=== PATIENT | male | born 1955 | race Caucasian/White ===

== ENCOUNTER → 2018-04-22 15:47 | Outpatient (CLI) | payer OTHER, SELFPAY ==
--- NOTE | 2018-04-22 15:50 | DI.RAD.S_ITS ---
PROCEDURE: XR LUMBAR SPINE 2-3V INDICATIONS: back pain TECHNIQUE: 2 views of the lumbar spine were acquired. COMPARISON: None. FINDINGS: Bones: No fracture or focal osseous destruction. Diffuse endplate spurring and sclerosis. Diffuse facet arthropathy. Mild levocurvature. Mild narrowing of the L1-L2 disc space. Moderate L5-S1 disc space narrowing. Soft tissues: Overlying bowel gas pattern is normal. No suspicious soft tissue calcifications. IMPRESSION: Mild degenerative disc disease, L5-S1 and L1-L2 as above. Diffuse facet arthropathy. Dictated by: Chris Ratliff M.D. on 04/23/2018 at 10:20 Approved by: Chris Ratliff M.D. on 04/23/2018 at 10:22
--- NOTE | 2018-04-22 15:50 | DI.RAD.S_ITS ---
PROCEDURE: XR THORACIC SPINE 3V INDICATIONS: back pain TECHNIQUE: 3 views of the thoracic spine were acquired. COMPARISON: None. FINDINGS: Bones: No fractures or dislocations. No suspicious bony lesions. Diffuse endplate spurring and sclerosis. Mild diffuse thoracic disc space narrowing. Soft tissues: No paravertebral stripe thickening. IMPRESSION: Mild diffuse thoracic disc degeneration as above Dictated by: Chris Ratliff M.D. on 04/23/2018 at 10:23 Approved by: Chris Ratliff M.D. on 04/23/2018 at 10:24
== END ==
PROVIDERS: Visit Provider Family Medicine
DX: M51.36 Other intervertebral disc degeneration, lumbar region (principal); M51.37 Other intervertebral disc degeneration, lumbosacral region; M51.34 Other intervertebral disc degeneration, thoracic region; M47.896 Other spondylosis, lumbar region; M48.04 Spinal stenosis, thoracic region; M48.07 Spinal stenosis, lumbosacral region; M48.061 Spinal stenosis, lumbar region without neurogenic claudication; M54.9 Dorsalgia, unspecified
CPT/HCPCS: 72072; 72100

== ENCOUNTER → 2018-07-27 13:51 | Outpatient (CLI) | payer OTHER, SELFPAY ==
--- NOTE | 2018-07-27 13:52 | DI.MRI.S_ITS ---
PROCEDURE: MR LUMBAR SPINE WO CON INDICATIONS: L5 radiculopathy TECHNIQUE: Noncontrast sagittal T1 spin echo and T2 fast echo, sagittal STIR, axial T1 and T2 fast spin echo through the lumbar spine. In cases with scoliosis, additional coronal T2 fast spin echo may be performed. COMPARISON: [facility], , L-SPINE WITHOUT CONTRAST, 08/24/2007, 18:46. FINDINGS: Image quality: Excellent. Alignment and Curvature: There is normal bony alignment. Bone Marrow: Marrow is of normal overall signal. No acute vertebral body compression fractures. Spinal Cord: Conus medullaris terminates at the L1-L2 level. Visualized cord demonstrates normal signal and size. Paraspinous Soft Tissues: Bilateral T2 hyperintense cysts L1-L2: No central canal or lateral recess narrowing. No foraminal stenosis. L2-L3: No definite central canal narrowing. Minimal partial effacement of the left and right lateral recesses, probably unchanged. Mild bilateral foraminal narrowing. No interval change L3-L4: Mild central canal narrowing. Moderate effacement of both lateral recesses although symmetric appearance. This may be slightly progressed Severe right and moderate left foraminal narrowing. L4-L5: No high-grade central canal narrowing. Partial effacement of both lateral recesses although symmetric appearance. This is unchanged. Severe left and right foraminal stenoses, no interval change. L5-S1: Posterior annular fissure. Mild central canal narrowing. Lateral recess appear patent. Moderate right and severe left foraminal narrowing which is slightly progressed. IMPRESSION: Slight interval progression of bilateral L3-L4 subarticular narrowing, and severe left L5-S1 foraminal stenosis otherwise unchanged examination as detailed above by spinal level. Dictated by: Chris Ratliff M.D. on 07/27/2018 at 14:51 Approved by: Chris Ratliff M.D. on 07/27/2018 at 15:03
== END ==
PROVIDERS: PCP Family Medicine; Visit Provider Physical Medicine & Rehabilitation
DX: M54.17 Radiculopathy, lumbosacral region (principal); M48.061 Spinal stenosis, lumbar region without neurogenic claudication
CPT/HCPCS: 72148

== ENCOUNTER → 2018-08-05 09:44 | Outpatient (CLI) | payer OTHER, SELFPAY ==
[2018-08-05 10:28] LABS: BUN Creatinine Ratio 22.2 (6-22); Blood Urea Nitrogen 20 mg/dL (9-20); Carbon Dioxide 31 mmol/L (22-32); Chloride 99 mmol/L (98-107); Cholesterol 212 mg/dL (140-199); Estimated Glomerular Filt Rate > 60.0 mL/min (>60); Glucose 89 mg/dL (80-110); HDL Cholesterol 64 mg/dL (40-60); HEMOLYSIS < 15 (0-50); LDL Cholesterol Calculated 127 mg/dL (<100); Potassium 4.4 mmol/L (3.4-5.1); Sodium 139 mmol/L (137-145); Triglycerides 106 mg/dL (35-150)
[2018-08-05 11:16] LABS: Creatinine Urine Random 24.2 mg/dL
[2018-08-05 11:24] LABS: Microalbumi Creatinin Ratio Ur 24.7 ug/mg CR (<30); Microalbumin Urine Random < 0.6 mg/dL (0-1.6)
== END ==
PROVIDERS: PCP Family Medicine; Visit Provider Registered Nurse
DX: I10 Essential (primary) hypertension (principal)
CPT/HCPCS: 36415; 80048; 80061; 82043; 82570

== ENCOUNTER 2018-09-08 04:54 | Emergency (ER) | payer OTHER, SELFPAY ==
[2018-09-08] VITALS (17 sets, daily range): BP systolic 105–138; BP diastolic 71–91; PULSE 50–65; RESP 10–18; TEMP 36.5; O2SAT 95–100; BMI 28.5
--- NOTE | 2018-09-08 04:57 | DI.RAD.S_ITS ---
PROCEDURE: XR CHEST 1V INDICATIONS: Chest pain TECHNIQUE: One view of the chest was acquired. COMPARISON: [facility], , CHEST 1 VIEW, 12/05/2008, 12:12. FINDINGS: Surgical changes and devices: None. Lungs and pleura: Lungs are clear. No pleural effusions or pneumothorax. Mediastinum: Mediastinal contours appear normal. Heart size is normal. Bones and chest wall: No suspicious bony lesions. Overlying soft tissues appear unremarkable. IMPRESSION: Normal for age, source of current chest pain symptoms is not seen. Dictated by: Alin Jones M.D. on 09/08/2018 at 9:09 Approved by: Alin Jones M.D. on 09/08/2018 at 9:09
--- NOTE | 2018-09-08 04:58 | ED.CHESTPAIN ---
HPI - Chest Pain <Damion Jose DO - Last Filed: 09/08/18 18:09> General Chief Complaint: Chest Pain Stated Complaint: chest pain woke him up Time Seen by Provider: 09/08/18 04:57 Source: patient Mode of arrival: ambulatory Limitations: no limitations History of Present Illness HPI narrative: Patient is a 63-year-old male here for evaluation of left-sided chest pressure. Patient states that it woke him up approximately 1 hr prior to arrival here in the emergency department. He states that has improved somewhat. States it is worse when he takes a big deep breath. Not worse with movement of his arm. Has never had anything like this before. Did not take anything for prior to arrival. No sweating. No nausea vomiting. Related Data Home Medications Medication Instructions Recorded Confirmed vitamin B complex tablet 1 tab PO DAILY 02/26/18 09/02/18 Previous Rx's Medication Instructions Recorded celecoxib 200 mg capsule 200 mg PO DAILY #30 cap 07/16/18 gabapentin 300 mg capsule 300 mg PO TID #90 cap 07/16/18 lisinopril 20 mg tablet 20 mg PO QDAY #90 tab 08/05/18 cyclobenzaprine 10 mg tablet 10 mg PO BID PRN #60 tab 09/02/18 Allergies Allergy/AdvReac Type Severity Reaction Status Date / Time tree pollen Allergy Mild congestion Uncoded 09/08/18 05:03 Review of Systems <DO Gabriela Shultz Last Filed: 09/08/18 18:09> Constitutional Denies fatigue, Denies fever(s) and Denies headache(s) ENT Ears, Nose, Mouth, and Throat: Denies headache(s) Cardiovascular Reports chest pain, Denies diaphoresis, Denies syncope, Denies rapid heart rate, Denies edema, Denies lightheadedness, Denies palpitations and Denies dyspnea Respiratory Denies cough, Reports pain on inspiration and Denies dyspnea Gastrointestinal Gastrointestinal: Denies abdominal pain, Denies nausea and Denies vomiting Musculoskeletal Denies myalgias and Denies arthralgias Integumentary/Breasts Denies rash Neurologic Denies confusion, Denies syncope, Denies headache(s) and Denies paresthesias Psychiatric Denies confusion Endocrine Denies fatigue and Denies palpitations Hematologic/Lymphatic Denies easy bleeding and Denies easy bruising PFSH <DO Gabriela Shultz Last Filed: 09/08/18 18:09> Medical History Diverticular disease (Chronic) Eczema (Chronic) Hypertension (Chronic) Surgical History History of arthroscopy of both knees (Resolved 2000) History of shoulder surgery (Resolved 1994) Family History Father Lung disease Smoker Oxygen dependent Mother Smoker Oxygen dependent Social History Smoking Status: Never smoker alcohol intake: current substance use type: does not use Social History Smoking Status: Never smoker alcohol intake: current substance use type: does not use Exam <DO Gabriela Shultz Last Filed: 09/08/18 18:09> Initial Vital Signs Initial Vital Signs: Vital Signs Temperature 97.7 F 09/08/18 05:04 Pulse Rate 59 L 09/08/18 05:04 Respiratory Rate 16 09/08/18 05:04 Blood Pressure 134/84 09/08/18 05:04 Pulse Oximetry 98 09/08/18 05:04 Const General: cooperative, healthy appearing, comfortable, well developed, well groomed and No acute distress Orientation: alert, awake and oriented x3 Chest Chest: normal inspection of the chest, No crepitus and No tenderness Resp Effort & Inspection: normal respiratory effort Auscultation: clear to auscultation bilaterally Cardio Rate: regular rate Rhythm: regular rhythm Pulses: radial pulses present GI Inspection: non-distended Palpation: soft Skin Lesions: no lesions Rashes: no rashes Neuro General: alert, awake and oriented x3 Cognition: normal cognition Speech: speech normal Extrem General: normal to inspection and capillary refill normal Psych Appearance: grossly normal and well kempt <Tania Lux DO - Last Filed: 09/08/18 14:42> Initial Vital Signs Initial Vital Signs: Vital Signs Temperature 97.7 F 09/08/18 05:04 Pulse Rate 59 L 09/08/18 05:04 Respiratory Rate 16 09/08/18 05:04 Blood Pressure 134/84 09/08/18 05:04 Pulse Oximetry 98 09/08/18 05:04 Scores <Damion Jose DO - Last Filed: 09/08/18 18:09> GCS [place] coma scale eye opening: Spontaneous Xin coma scale verbal response: Orientated [place] coma scale motor response: Obey commands [place] coma scale total score: 15 HEART Score Heart Score history: Slightly Suspicious Heart Score EKG: Non-Specific repolarization disturbance Heart Score Age: 45-64 years old Heart Score risk factors: 1-2 risk factors Heart Score troponin: < or = to normal limit Heart Score Total: 3 Course <Damion Jose DO - Last Filed: 09/08/18 18:09> Orders Ordered: Discontinued Medications Aspirin (Aspirin Chew) 324 mg PO NOW ONE Stop: 09/08/18 08:35 Last Admin: 09/08/18 08:52 Dose: 324 mg Nitroglycerin (Nitrostat) 0.4 mg SL NOW ONE Stop: 09/08/18 08:35 Last Admin: 09/08/18 08:57 Dose: 0.4 mg Nitroglycerin (Nitrostat) 0.4 mg SL NOW ONE Stop: 09/08/18 09:05 Last Admin: 09/08/18 09:04 Dose: 0.4 mg Nitroglycerin (Nitrostat) 0.4 mg SL NOW ONE Stop: 09/08/18 10:59 Last Admin: 09/08/18 10:56 Dose: 0.4 mg Pantoprazole Sodium (Protonix) 40 mg IV NOW ONE Stop: 09/08/18 10:42 Last Admin: 09/08/18 10:57 Dose: 40 mg Vital Signs - 8 hr 09/08/18 10:55 09/08/18 10:56 09/08/18 11:37 Pulse Rate 56 L 65 56 L Respiratory Rate 14 10 L Blood Pressure 113/71 Blood Pressure [Left Arm] 113/71 110/71 Pulse Oximetry 99 100 <Tania Lux DO - Last Filed: 09/08/18 14:42> Course Narrative: I have received sign-out from overnight houseperson present biter. I have done independent exam of patient myself. He now states that his chest discomfort is returning it is in the center of his chest nonradiating. He says it never really went away but is definitely escalating now. He has an appointment with a new PCP at the end of September whom he has not met yet. Will give aspirin and nitro and repeat EKG now. Orders Ordered: Discontinued Medications Aspirin (Aspirin Chew) 324 mg PO NOW ONE Stop: 09/08/18 08:35 Last Admin: 09/08/18 08:52 Dose: 324 mg Nitroglycerin (Nitrostat) 0.4 mg SL NOW ONE Stop: 09/08/18 08:35 Last Admin: 09/08/18 08:57 Dose: 0.4 mg Nitroglycerin (Nitrostat) 0.4 mg SL NOW ONE Stop: 09/08/18 09:05 Last Admin: 09/08/18 09:04 Dose: 0.4 mg Nitroglycerin (Nitrostat) 0.4 mg SL NOW ONE Stop: 09/08/18 10:59 Last Admin: 09/08/18 10:56 Dose: 0.4 mg Pantoprazole Sodium (Protonix) 40 mg IV NOW ONE Stop: 09/08/18 10:42 Last Admin: 09/08/18 10:57 Dose: 40 mg Vital Signs - 8 hr 09/08/18 10:55 09/08/18 10:56 09/08/18 11:37 Pulse Rate 56 L 65 56 L Respiratory Rate 14 10 L Blood Pressure 113/71 Blood Pressure [Left Arm] 113/71 110/71 Pulse Oximetry 99 100 MDM - Chest Pain <Damion Jose DO - Last Filed: 09/08/18 18:09> Lab Data Attestation: I reviewed the patient's lab results. Result diagrams: 09/08/18 05:20 09/08/18 05:20 Lab Results 09/08/18 09/08/18 09/08/18 Range/Units 05:20 05:20 08:25 WBC 6.6 (4.5-11.0) X10^3/uL RBC 4.64 (4.5-5.9) X10^6/uL Hgb 14.8 (13.5-17.5) g/dL Hct 42.0 (41-53) % MCV 90.5 (80-100) fL MCH 31.8 (26-34) PG MCHC 35.1 (30-36) % RDW 12.3 (11.6-14.8) % Plt Count 277 (150-400) X10^3/uL Neut % (Auto) 62.9 (50-75) % Lymph % (Auto) 24.6 L (25-40) % [place] % (Auto) 8.9 (3-14) % Eos % (Auto) 2.5 (2-4) % Baso % (Auto) 1.1 (0-2) % Neut # (Auto) 4100 (1201-7346) /uL Lymph # (Auto) 1600 (1110-4788) /uL [place] # (Auto) 600 (0-900) /uL Eos # (Auto) 200 (0-450) /uL Baso # (Auto) 100 (0-100) /uL Sodium 140 (137-145) mmol/L Potassium 4.1 (3.4-5.1) mmol/L Chloride 104 (98-107) mmol/L Carbon Dioxide 28 (22-32) mmol/L BUN 21 H (9-20) mg/dL Creatinine 0.80 (0.66-1.25) mg/dL Estimated GFR > 60.0 (>60) mL/min BUN/Creatinine Ratio 26.3 H (6-22) Glucose 85 (80-110) mg/dL Calcium 9.7 (8.4-10.2) mg/dL Troponin I < 0.012 < 0.012 (0.01-0.034) ng/mL Urine Dip Bedside Urine Glucose Negative Bedside Urine Bilirubin - Negative Bedside Urine Ketone - Negative Urine Specific [place] 1.020 Bedside Urine Occult Blood - Negative Bedside Urine pH 6.5 Bedside Urine Protein - Negative Bedside Urine Urobilinogen - Negative Bedside Urine Nitrite - Negative Bedside Urine Leukocytes - Negative Esterase Imaging Data Chest x-ray: Attestation: I personally reviewed and interpreted this imaging study as follows: My impression: Bilateral patchy year waist disease, no pneumothorax, normal size heart ECG Data Attestation: I personally reviewed and interpreted this ECG as follows: Prior ECG tracings: not available for review Interpretation: Sinus bradycardia Ventricular rate of 57 Incomplete right bundle branch block Left anterior fascicular block Normal as needed oval Normal QRS Nonspecific ST T wave changes Repeat EKG with patient not having symptoms time 0602 hr Sinus bradycardia Ventricular rate of 49 Right bundle branch block Left anterior fascicular block Normal as needed oval Normal QRS No ST T wave changes Unchanged from admission EKG MDM Narrative Medical decision making narrative: Patient initial troponin was negative. EKG with symptoms without symptoms unchanged. Has a heart score of 3. During his stay symptoms resolved. Had discussion with the patient regarding staying around for a 2nd troponin. Patient stated that he would stay. Care turned over to day provider change of shift to follow up on troponin and eventual disposition. <Tania Lux, DO - Last Filed: 09/08/18 14:42> Lab Data Lab Results 09/08/18 09/08/18 09/08/18 Range/Units 05:20 05:20 08:25 WBC 6.6 (4.5-11.0) X10^3/uL RBC 4.64 (4.5-5.9) X10^6/uL Hgb 14.8 (13.5-17.5) g/dL Hct 42.0 (41-53) % MCV 90.5 (80-100) fL MCH 31.8 (26-34) PG MCHC 35.1 (30-36) % RDW 12.3 (11.6-14.8) % Plt Count 277 (150-400) X10^3/uL Neut % (Auto) 62.9 (50-75) % Lymph % (Auto) 24.6 L (25-40) % [place] % (Auto) 8.9 (3-14) % Eos % (Auto) 2.5 (2-4) % Baso % (Auto) 1.1 (0-2) % Neut # (Auto) 4100 (1151-0624) /uL Lymph # (Auto) 1600 (4408-3208) /uL [place] # (Auto) 600 (0-900) /uL Eos # (Auto) 200 (0-450) /uL Baso # (Auto) 100 (0-100) /uL Sodium 140 (137-145) mmol/L Potassium 4.1 (3.4-5.1) mmol/L Chloride 104 (98-107) mmol/L Carbon Dioxide 28 (22-32) mmol/L BUN 21 H (9-20) mg/dL Creatinine 0.80 (0.66-1.25) mg/dL Estimated GFR > 60.0 (>60) mL/min BUN/Creatinine Ratio 26.3 H (6-22) Glucose 85 (80-110) mg/dL Calcium 9.7 (8.4-10.2) mg/dL Troponin I < 0.012 < 0.012 (0.01-0.034) ng/mL Urine Dip Bedside Urine Glucose Negative Bedside Urine Bilirubin - Negative Bedside Urine Ketone - Negative Urine Specific [place] 1.020 Bedside Urine Occult Blood - Negative Bedside Urine pH 6.5 Bedside Urine Protein - Negative Bedside Urine Urobilinogen - Negative Bedside Urine Nitrite - Negative Bedside Urine Leukocytes - Negative Esterase MDM Narrative Medical decision making narrative: Initially with patient's increasing chest pain radiating to his neck is the patient does need a stress test. He has 2-troponins 3 hr apart. His pain relieved with nitroglycerin. However it is starting to come back will give him some Protonix. [facility] is closed [facility] closed [facility] closed [facility] closed I spoke with [place] doctor who states that without exertional dyspnea, and a low heart score along with 2-troponins this can likely be outpatient follow-up. I spoke with Dr. Vela who has yet to meet the patient and she is happy to schedule and arrange outpatient follow up for a stress test. I discussed with patient specific symptoms and when to return to the ED, and have a very low threshold. Patient agrees and understands. Discharge Plan Departure Patient Disposition: Home Clinical Impression: Atypical chest pain Discharge Date/Time: 09/08/18 12:04 Interventions: ED Discharge Assessment Last Done: 09/08/18 12:04 Instructions: DI for Acute Coronary Syndrome, DI for Atypical Chest Pain Activity Restrictions/Additional Instructions: *You have been diagnosed with atypical chest pain *What to do: You need a stress test, should be scheduling you one as an outpatient. Should be scheduling 1 as an outpatient. *Continue to take medications as directed Aspirin 81 mg daily *Follow up with your primary care provider in 2-3 days *Return to ER if you should have increasing persistent chest pain shortness of breath with exertion, neck pain or any new, worsening or concerning symptoms Prescriptions: No Action lisinopril 20 mg tablet 20 mg PO QDAY Qty: 90 RF: 3 vitamin B complex [B Complex-Vitamin B12] tablet 1 tab PO DAILY RF: 0 celecoxib [Celebrex] 200 mg capsule 200 mg PO DAILY Qty: 30 RF: 2 gabapentin 300 mg capsule 300 mg PO TID Qty: 90 RF: 2 cyclobenzaprine 10 mg tablet 10 mg PO BID PRN (Reason: muscle spasm) Qty: 60 RF: 1 Referrals: Vaishali Vela MD [Primary Care Provider] -
[2018-09-08 05:26] LABS: Add Manual Diff / Slide Review NO; Basophils Absolute Auto 100 /uL (0-100); Basophils Percent Auto 1.1 % (0-2); Eosinophils Absolute Auto 200 /uL (0-450); Eosinophils Percent Auto 2.5 % (2-4); Hemoglobin 14.8 g/dL (13.5-17.5); Lymphocytes Absolute Auto 1600 /uL (1100-4500); Lymphocytes Percent Auto 24.6 % (25-40); Mean Corpuscular HGB Conc 35.1 % (30-36); Mean Corpuscular Hemoglobin 31.8 PG (26-34); Mean Corpuscular Volume 90.5 fL (80-100); Monocytes Absolute Auto 600 /uL (0-900); Monocytes Percent Auto 8.9 % (3-14); Neutrophils Absolute Auto 4100 /uL (1500-7000); Neutrophils Percent Auto 62.9 % (50-75); Platelet Count 277 X10^3/uL (150-400); Red Blood Cell Count 4.64 X10^6/uL (4.5-5.9); Red Cell Distribution Width 12.3 % (11.6-14.8); White Blood Cell Count 6.6 X10^3/uL (4.5-11.0)
[2018-09-08 05:37] LABS: BUN Creatinine Ratio 26.3 (6-22); Blood Urea Nitrogen 21 mg/dL (9-20); Calcium 9.7 mg/dL (8.4-10.2); Carbon Dioxide 28 mmol/L (22-32); Chloride 104 mmol/L (98-107); Estimated Glomerular Filt Rate > 60.0 mL/min (>60); Glucose 85 mg/dL (80-110); HEMOLYSIS 27 (0-50); Potassium 4.1 mmol/L (3.4-5.1); Sodium 140 mmol/L (137-145)
[2018-09-08 05:49] LABS: Troponin I < 0.012 ng/mL (0.01-0.034)
[2018-09-08] MEDS: ASPIRIN 81 MG TAB 324 MG PO (08:52)
[2018-09-08] MEDS: NITROGLYCERIN 0.4 MG SL TAB SL ×3 (08:57→10:56)
--- NOTE | 2018-09-08 09:00 | PC.NURSE ---
after first nitro. 08/22
[2018-09-08 09:01] LABS: Troponin I < 0.012 ng/mL (0.01-0.034)
--- NOTE | 2018-09-08 09:06 | PC.NURSE ---
no changes from 2nd nitro.
[2018-09-08] MEDS: PANTOPRAZOLE 40 MG VIAL IV (10:57)
== END 2018-09-08 12:04 | disposition home or self-care (01) ==
PROVIDERS: Emergency Medicine; Emergency Provider Emergency Medicine; PCP Family Medicine
DX: R07.89 Other chest pain (principal)
CPT/HCPCS: 36415; 36591; 71045; 80048; 81003; 84484; 85025; 93005; 96374; 99285; C9113

== ENCOUNTER 2018-09-21 12:34 | Outpatient (CLI) | payer OTHER, SELFPAY ==
[2018-09-21] VITALS (8 sets, daily range): BP systolic 108–117; BP diastolic 73–87; PULSE 56–66; RESP 16–18; TEMP 36.4; O2SAT 94–100
--- NOTE | 2018-09-21 12:36 | DI.RAD.S_ITS ---
PROCEDURE: PAIN L/SI FACET INJ/BLK 1STL INDICATIONS: RADICULOPATHY FINDINGS: Fluoroscopic spot filming was performed to verify placement of spinal needles at the bilateral L3-4, and L4-5 facet joints, as labeled on the films. Appropriate location(s) of the needle tip(s) was confirmed by injection of iodinated contrast. IMPRESSION: Successful facet joint needle tip localization for bilateral facet steroid injections (4 total injections). Dictated by: Alin Jones M.D. on 09/21/2018 at 14:59 Approved by: Alin Jones M.D. on 09/21/2018 at 15:00
[2018-09-21] MEDS: MIDAZOLAM 5 MG/5 ML VIAL IV (13:29)
[2018-09-21] MEDS: fentaNYL 100 MCG/2 ML INJ 50 MCG IV (13:32)
[2018-09-21] MEDS: IOPAMIDOL 15 ML VIAL 3 ML INJ (13:37)
--- NOTE | 2018-09-21 13:39 | PC.NURSE ---
ASSISTING PT OFF TABLE AND TRANSPORTING TO POST PROC AREA IN STABLE CONDITION
--- NOTE | 2018-09-21 13:41 | P.PCN_ITS ---
Procedures Date/Time Date of procedure: 09/21/18 Time of procedure: 13:40 General Procedure description: PREOP DIAGNOSIS 1. FACET ARTHROPATHY 2. AXIAL LBP 3. MULTILEVEL DDD POST OP DIAGNOSIS 1. FACET ARTHROPATHY 2. AXIAL LBP 3. MULTILEVEL DDD PROCEDURES 1. FLUORSCOPICALLY GUIDED CONTRAST CONTROLLED FACET JOINT INJECTIONS BILATERAL L3/4, L4/5 PHYSICIAN: Jesus David DO INDICATIONS: Valentín is referred by Dr. Vela for treatment of Axial LBP FINDINGS Multilevel Facet Arthropathy with Clinically significant axial LBP DESCRIPTION OF PROCEDURE Fluoroscopically guided, contrast-controlled bilateral L3/4, L4/5 facet joint injections. Following denial of allergy and review of potential side effects and complications, including, but not necessarily limited to, infection, allergic reaction, local tissue breakdown, stroke, temporary or permanent nerve injury, paralysis, and possible , the patient indicated that the patient understood and agreed to proceed. An informed consent document was signed by the patient, witnessed by a nurse, and placed in the patient's chart. Additionally, other treatment options including medications, modalities, and physical therapy were reviewed with the patient. After review of previous anaesthesic history and IV conscious sedation the patient was deemed safe to proceed with todays procedure with IV conscious sedation as ASA class II designation. Safety time-out was performed to confirm patient ID, procedure to be performed and site of procedure. IV sedation was accomplished with a combination of 3mg of Versed and 50mcg of Fentanyl was administered by the RN after DO order, titrated to patient comfort during the course of the procedure while the patient remained responsive to all verbal commands. In the prone position, following sterile prep and drape of the lumbar region, the posterior aspect of the L3/4, L4/5 facet joints were identified fluoroscopically. The skin was anesthetized via a 25-gauge 1.5-inch needle with 1% lidocaine solution into the corresponding facet joints. At this point, a 22- gauge 3.5-inch spinal needle was atraumatically introduced and advanced under fluoroscopic guidance into the corresponding facet joints. Following negative aspiration, injections of approximately 0.2-cc of Isovue 200 confirmed interarticular placement without vascular uptake. The identical procedure was then performed at the L3/4, L4/5 facet joints on the left. Radiological data, including multiple fluoroscopic views of the lumbosacral spine, reveal a spinal needle at the L3/4, L4/5 facet joints bilaterally. Subsequent views show flow of contrast material both superiorly and inferiorly within the joint space without vascular or intrathecal uptake. At this point, a total of 0.5 cc including a mixture of 0.25 cc Marcaine and 0.25 cc betamethasone was injected without complication into each of the corresponding facet joints. The patient tolerated the procedure well without signs or symptoms of complications prior to transfer to the recovery area continued monitoring without incident. The patient was then transferred to the recovery area where they were observed for an appropriate period of time after the injection. The patient reported a VAS score of 7 prior to the procedure and a post-procedure VAS of 0. Total Fluoroscopy Time: 20.3 seconds Total Conscious Sedation Time: 24min POST OP INSTRUCTIONS The patient was provided a Pain Log to continue to record their response to the target-specific procedure prior to follow-up visit with their referring physician. Additionally, specific post-injection care instructions and a contact number to our office were provided if concerns arise regarding possible complications associated with the procedure are suspected. Jesus David DO Complications: none
[2018-09-21] MEDS: BUPIVACAINE 0.5% (PF) VIAL 5 ML INJ (13:58)
[2018-09-21] MEDS: BETAMETHASONE 30 MG/5 ML MDV 12 MG INJ (13:58)
--- NOTE | 2018-09-21 14:08 | PC.NURSE ---
pt returned 1345 from procedure awake and alert, via wheelchair, able to move from w/c to chair with standby assist. Resumed monitoring from Rayna KOCH.
--- NOTE | 2018-09-22 15:34 | PC.NURSE ---
FOLLOW UP CALL MADE, LEFT PHONE MSG WITH CLINIC NUMBER AND HOURS FOR ANY QUESTIONS/CONCERNS.
== END 2018-09-21 14:26 ==
LOC: RAD 12:35
PROVIDERS: PCP Family Medicine; Visit Provider Physical Medicine & Rehabilitation
DX: M47.816 Spondylosis without myelopathy or radiculopathy, lumbar region (principal); M51.36 Other intervertebral disc degeneration, lumbar region; M54.5 Low back pain
CPT/HCPCS: 64493; 64494; 99152; J0702; J1100; J2250; J3010

== ENCOUNTER → 2018-09-23 12:40 | Outpatient (CLI) | payer OTHER, SELFPAY ==
--- NOTE | 2018-09-23 13:54 | PM.TREADMILL ---
Cardiac Stress Test Report Referral & Results Date Patient Seen: 09/23/18 Requesting provider: Vaishali Vela Indication: Chest pain, status post ER visit Rest ECG: Unremarkable Procedure Note: Today following both written and verbal informed consent, the patient was exercised according to a standard [facility] protocol. The patient exercised for a total of 9 minutes 55 seconds achieving a maximum heart rate of 156. Patient's maximum systolic blood pressure was 180. This was an estimated 12.8 MET's. There are no ST-T segment changes During exercise patient did have frequent PVCs that were multifocal in origin including ventricular couplets and he had several fiber 2nd runs of ventricular bigeminy all of which was asymptomatic Normal heart rate and blood pressure response to exercise Functional aerobic impairment rates-15% on the active scale, or 115% normal Impression: No classic evidence of ischemia Ventricular dysrhythmia as above Averaged to excellent exercise capacity Given patient's ventricular dysrhythmia strongly suggest echocardiography be performed. Discussed this with the patient prior to him leaving the diagnostic imaging suite. Please note: Actual ECG tracings can be found in the PACS system.
== END ==
PROVIDERS: PCP Family Medicine; Visit Provider Family Medicine
DX: R07.9 Chest pain, unspecified (principal); I49.3 Ventricular premature depolarization
CPT/HCPCS: 93016; 93017; 93018

== ENCOUNTER → 2018-10-12 06:47 | Outpatient (CLI) | payer OTHER, SELFPAY ==
--- NOTE | 2018-10-12 06:49 | DI.ECHO.S_ITS ---
[place] [facility]---------[facility] +---------+ : : [address] : : : : [id number] : : : : Phone: [phone]+ Echocardiogram Report + + :Name: BUCKY CORREIA Study Date: 10/12/2018 Height: 68 in : :[facility] Exam Location: IS Weight: 190 lb : : Gender: Male BSA: 2.0 m2 : :: 1955 Age: 63 yrs BP: 115/80 mmHg: :Reason For Study: Abnormal stress test/ ECG : : Performed By: Shira Page : :Referring: KRISTI WELLS : + + Interpretation Summary 1) Normal left ventricular thickness and size with low normal systolic function (EF 50-55%). 2) Normal right ventricular size and function. 3) Both atria are moderately dilated. 4) No significant valvular abnormalities. 5) No prior Echo available for comparison. Procedure: A two-dimensional transthoracic echocardiogram with color flow and Doppler was performed. The study quality was technically adequate. There is no prior echocardiogram noted for this patient. The heart rate ranged between 48-57 bpm during the study. The patient had occasional PVCs during the exam. Left Ventricle: The left ventricle is normal in size. There is normal left ventricular wall thickness. The ejection fraction is estimated to be 50-55%. Left ventricular systolic function is low normal. There are no focal wall motion abnormalities. Right Ventricle: The right ventricle is normal in size and function. Atria: Both atria are moderately dilated. There is no Doppler evidence for an interatrial shunt. Mitral Valve: The mitral valve leaflets appear mildly thickened, but open well. There is mild mitral annular calcification. There is trace mitral regurgitation. Aortic Valve: The aortic valve is trileaflet. The aortic valve opens well. There is no aortic valve stenosis. There is trace aortic regurgitation. Tricuspid Valve: The tricuspid valve is normal in structure but is abnormal in function. There is trace tricuspid regurgitation. The right ventricular systolic pressure is estimated to be at least 21 mmHg based on an estimated right atrial pressure of 3 mm Hg. Pulmonic Valve: The pulmonic valve is not well visualized. There is no pulmonic valvular regurgitation. Great Vessels: The aortic root is normal size. The ascending aorta is at the upper limits of normal in size. The pulmonary artery is not well visualized, but is probably normal size. The IVC is of normal diameter and collapses greater than 50% with a sniff. This suggests a low right atrial pressure of 3 mm Hg. Pericardium/ Pleura There is no pericardial effusion. There is no pleural effusion. MMode/2D Measurements & Calculations LVIDd: 5.7 cm LVOT diam: 2.3 cm LVIDs: 3.9 cm Ao root diam: 3.5 cm FS: 32.0 % asc Aorta Diam: 3.6 cm EPSS: 0.53 cm IVSd: 0.66 cm LVPWd: 0.84 cm LV lundberg. diameter/BSA (cm/m^2): 2.9 LV sys. diameter/BSA (cm/m^2): 1.9 LA A2 area: 23.3 cm2 RA long axis: 5.5 cm LA A4 area: 24.9 cm2 RA area: 23.1 cm2 LA length (vol): 5.7 cm RA vol: 82.1 ml LA vol: 86.4 ml RA : 41.1 ml/m2 LA vol index: 43.2 ml/m2 Doppler Measurements & Calculations Ao V2 max: 122.0 cm/sec LVOT Max Edwar: 84.9 cm/sec Ao V2 mean: 89.0 cm/sec LV V1 max P.9 mmHg Ao max P.0 mmHg LV V1 VTI: 17.2 cm Ao mean P.4 mmHg SAM(I,D): 2.4 cm2 Ao V2 VTI: 28.1 cm SAM(V,D): 2.8 cm2 sev ratio: 0.61 SAM indexed to BSA (cm^2/m^2): 1.2 MV E max edwar: 54.4 cm/sec TR max edwar: 209.6 cm/sec MV A max edwar: 48.6 cm/sec TR max P.6 mmHg MV E/A: 1.1 PA V2 max: 64.0 cm/sec Med Peak E' Edwar: 4.7 cm/sec PA V2 mean: 46.9 cm/sec E/E' med: 11.5 PA mean P.95 mmHg Lat Peak E' Edwar: 7.3 cm/sec PA Accel Time: 0.13 sec E/E' lat: 7.5 E/e' average: 9.5 MV dec time: 0.23 sec MV P1/2t: 67.0 msec MV P1/2t max edwar: 54.2 cm/sec SV(LVOT): 68.8 ml MVA(P1/2t): 3.3 cm2 Reading Physician:04:50 PM
== END ==
PROVIDERS: PCP Family Medicine; Referring Provider Internal Medicine Critical Care Medicine; Visit Provider Family Medicine
DX: R94.39 Abnormal result of other cardiovascular function study (principal); I49.9 Cardiac arrhythmia, unspecified
CPT/HCPCS: C8929; Q9957

== ENCOUNTER → 2018-10-22 07:10 | Outpatient (CLI) | payer OTHER, SELFPAY ==
[2018-10-22 08:25] LABS: Cholesterol 194 mg/dL (140-199); HDL Cholesterol 74 mg/dL (40-60); LDL Cholesterol Calculated 107 mg/dL (<100); Triglycerides 66 mg/dL (35-150)
== END ==
PROVIDERS: PCP Family Medicine; Visit Provider Internal Medicine Cardiovascular Disease
DX: Z00.00 Encounter for general adult medical examination without abnormal findings (principal)
CPT/HCPCS: 36415; 80061

== ENCOUNTER → 2020-06-04 09:05 | Outpatient (CLI) | payer OTHER, SELFPAY ==
[2020-06-04 10:45] LABS: COVID19 -Nasal RAPID Negative (Negative)
== END ==
PROVIDERS: PCP Family Medicine; Visit Provider Specialist
DX: Z01.812 Encounter for preprocedural laboratory examination (principal); Z20.828 Contact with and (suspected) exposure to other viral communicable diseases
CPT/HCPCS: 87635; C9803

== ENCOUNTER 2020-06-05 08:09 | Day surgery (SDC) | payer OTHER, SELFPAY ==
--- NOTE | 2020-06-05 | PATH_ITS ---
[facility] Accession Number: [id number] . 01 Material submitted: . colon - POLYPS AT 60 CM . 02 Diagnosis: Colon, Polyps at 60 cm, Biopsy: Tubular adenoma in two of six fragments. Benign lymphoid aggregate in one fragment. MRV 06/07/2020 1411 Local . 02 Electronically signed: . Ela Velasco MD, Pathologist NPI- [id number] . 01 Gross description: . POLYPS AT 60 CM: Received in formalin are multiple fragment(s) of ferguson, soft tissue measuring 0.1 x 0.1 x 0.1 cm to 0.3 x 0.2 x 0.2 cm submitted entirely in 1 cassette(s) /PRESTON 06/06/2020 2216 Local . 02 Pathologist provided ICD-10: D12.6 . 02 CPT . 958570 Performed at: 01 [facility] [address] [facility], [place], [place] [id number] MD Esa Kwon MD Phone: [phone] Performed at: 02 [facility] [address] [place], [place] [id number] MD Ela Velasco MD Phone: [phone]
[2020-06-05] MEDS: LACTATED RINGERS 1,000 ML 200 ML IV (08:35)
[2020-06-05 08:36] VITALS: BP 126/84; PULSE 68; RESP 12; TEMP 36.6; O2SAT 98; BMI 27.3
--- NOTE | 2020-06-05 09:43 | PM.HP.1 ---
History of Present Illness History of Present Illness Date Patient Seen: 06/05/20 Time Patient Seen: 09:43 Chief complaint: SDC Narrative: Patient is a gentleman whose last colonoscopy was 10 years ago. No family history of colon cancer. Patient History Medical History Diverticular disease Eczema Hypertension Surgical History History of arthroscopy of both knees (2000) History of shoulder surgery (1994) Family & Social History Family History Father Lung disease Smoker Oxygen dependent Mother Smoker Oxygen dependent Social History: household members spouse Tobacco & Substance use: Smoking Status Never smoker alcohol intake current alcohol intake frequency 0-2 drinks per day Substance Use Type does not use Meds Home Medications and Allergies Home Medications Medication Instructions Recorded Confirmed Type vitamin B complex 1 tab PO DAILY 02/26/18 06/05/20 History cyclobenzaprine 10 mg tablet 10 mg PO BID PRN #60 tab 09/02/18 06/05/20 Rx celecoxib 200 mg capsule 200 mg PO DAILY #30 cap 10/21/18 06/05/20 Rx lisinopril 20 mg tablet 20 mg PO QDAY #90 tab 09/07/19 06/05/20 Rx Allergies Allergy/AdvReac Type Severity Reaction Status Date / Time No Known Drug Allergies Allergy Verified 06/05/20 08:35 Review of Systems Review of Systems ROS: Yes All systems reviewed with the patient and are negative except as otherwise documented Exam Vital Signs (past 8 hours): - 06/05/20 08:36 Temperature 97.8 F Pulse Rate 68 Respiratory Rate 12 Blood Pressure 126/84 Pulse Oximetry 98 Oxygen Delivery Method Room Air Narrative Exam Narrative: Pleasant cooperative patient no apparent distress. Lungs are clear to auscultation. No rales or rhonchi. Heart regular rate and rhythm no murmur gallop. Abdomen is soft nontender without mass. No obvious hernias. Patient is alert and oriented x3. Assessment & Plan Assessment & Plan narrative: The patient for a screening colonoscopy. I have discussed the procedure with them. Risks of bleeding, perforation which would necessitate major operation, failure to find remove all lesions, the potential tattoo were all discussed. All questions were answered. They wished to proceed.
--- NOTE | 2020-06-05 09:45 | PM.PREOP ---
Pre-operative Note COVID-19 COVID-19 status: Negative Result date/Date tested (Pos, Neg/Pending): 06/04/20 Interval Note History & Physical reviewed/Exam performed by Physician: Yes Changes to H&P: No ASA Class (for procedural sedation): II
[2020-06-05] MEDS: fentaNYL 250 MCG/5 ML INJ IV (09:50)
[2020-06-05] MEDS: MIDAZOLAM 5 MG/5 ML VIAL IV (09:50)
--- NOTE | 2020-06-05 10:09 | PM.OP.ENDO ---
Operative Date/Time/Diagnoses Date of procedure: 06/05/20 Time of procedure: 10:11 Pre-op diagnosis: Screening exam. Last exam 10 years ago. Post-op diagnosis: same (Polyps. Diverticulosis.) Procedure & Clinicians Study performed: Colonoscopy with cold biopsy Same procedure as scheduled: Yes Indications: Screening. Last exam 10 years ago. Surgeon: Lavelle Dejesus Procedure Notes SCOAP/Timeout: Performed Procedure in detail: The patient was placed in the left lateral decubitus position and underwent IV sedation directed by the surgeon consisting of fentanyl and Versed. Digital exam was remarkable for mildly enlarged prostate.. The scope was inserted and advanced through the rectum into the sigmoid, descending, transverse, and ascending colon. The patient was noted to have extensive diverticulosis of the sigmoid colon.. The cecum was reached identified by the ileocecal valve and the appendiceal opening. The scope was gradually brought out. Two small Polyps were found at about 60 cm and were biopsied and removed and placed in the same container. The scope ultimately was retroflexed in the rectum. The appearance was normal in appearance. The scope was removed and the patient tolerated the procedure well. The prep was excellent. Scope withdrawal time: 6 minutes(8 minutes total) Sedation minutes: 19 Findings: diverticulosis and polyp (2 small polyps) Specimen(s): other (Polyps) Complications: none Post-procedure Recommendations: Colonscopy in 5 years (Unless the polyps are not adenomatous in which case 10 years would be more appropriate.) and High fiber diet Follow up: as needed Disposition: PACU
[2020-06-05 10:13] VITALS: BP 109/58; PULSE 71; RESP 10; TEMP 36.7; O2SAT 97
[2020-06-05 10:18] VITALS: BP 106/59; PULSE 69; RESP 11; O2SAT 97
[2020-06-05 10:22] VITALS: BP 100/56; PULSE 67; RESP 14; O2SAT 97
[2020-06-05 10:29] VITALS: BP 103/67; PULSE 73; RESP 14; TEMP 37.3; O2SAT 95
[2020-06-05 10:35] VITALS: BP 108/68; PULSE 81; RESP 11; O2SAT 94
== END 2020-06-05 10:56 | disposition home or self-care (01) ==
PROVIDERS: PCP Family Medicine; Referring Provider Specialist; Visit Provider Specialist
PROC: 0DJD8ZZ Inspection of Lower Intestinal Tract, Via Natural or Artificial Opening Endoscopic (ICD-10-PCS; CPT 45378; principal; 2020-06-05 09:15)
DX: Z12.11 Encounter for screening for malignant neoplasm of colon (principal); I10 Essential (primary) hypertension; K57.30 Diverticulosis of large intestine without perforation or abscess without bleeding; D12.6 Benign neoplasm of colon, unspecified
CPT/HCPCS: 45380; 99152; J2250; J3010

== ENCOUNTER → 2020-08-06 10:53 | Outpatient (CLI) | payer OTHER, SELFPAY ==
[2020-08-06 12:21] LABS: Alanine Aminotransferase 31 IU/L (<50); Albumin 4.4 g/dL (3.5-5.0); Albumin Globulin Ratio 1.5 (1.0-2.8); Alkaline Phosphatase 76 U/L (38-126); Aspartate Aminotransferase 39 IU/L (17-59); BUN Creatinine Ratio 19.4 (6-22); Bilirubin Total 0.7 mg/dL (0.2-1.3); Blood Urea Nitrogen 18 mg/dL (9-20); Calcium 9.6 mg/dL (8.4-10.2); Carbon Dioxide 33 mmol/L (22-32); Chloride 102 mmol/L (98-107); Cholesterol 214 mg/dL (140-199); Estimated Glomerular Filt Rate > 60.0 mL/min (>60); Glucose 126 mg/dL (80-110); HDL Cholesterol 80 mg/dL (40-60); HEMOLYSIS < 15 (0-50); LDL Cholesterol Calculated 118 mg/dL (<100); Potassium 4.4 mmol/L (3.4-5.1); Sodium 139 mmol/L (137-145); Total Protein 7.4 g/dL (6.3-8.2); Triglycerides 81 mg/dL (35-150)
[2020-08-06 12:58] LABS: Creatinine Urine Random 108.8 mg/dL
[2020-08-06 13:02] LABS: Microalbumi Creatinin Ratio Ur 19.3 ug/mg CR (<30); Microalbumin Urine Random 2.1 mg/dL (0-1.6)
== END ==
PROVIDERS: PCP Family Medicine; Referring Provider Family Medicine; Visit Provider Family Medicine
DX: I10 Essential (primary) hypertension (principal)
CPT/HCPCS: 36415; 80053; 80061; 82043; 82570

== ENCOUNTER → 2021-02-11 09:18 | Outpatient (CLI) | payer OTHER, SELFPAY ==
--- NOTE | 2021-02-11 09:20 | DI.RAD.S_ITS ---
PROCEDURE: XR SHOULDER LT MIN 2V INDICATIONS: L shoulder pain TECHNIQUE: 3 views of the shoulder were acquired. COMPARISON: None. FINDINGS: Bones: No fractures or dislocations. No suspicious bony lesions. Visualized ribs appear intact. Mild glenohumeral joint degenerative change. AC joint hypertrophy with mild downward going component. Soft tissues: No suspicious soft tissue calcifications. IMPRESSION: Degenerative change. No evidence acute bony abnormality of the left shoulder. If clinical suspicion and/or symptoms persist, further assessment with repeat plain films, or advanced imaging (e.g., CT, MRI, or bone scan) may be helpful for further assessment. Dictated by: Easton Valderrama M.D. on 02/11/2021 at 9:44 Approved by: Easton Valderrama M.D. on 02/11/2021 at 9:47
== END ==
PROVIDERS: PCP Family Medicine; Referring Provider Physician Assistant; Visit Provider Physician Assistant
DX: M25.512 Pain in left shoulder (principal)
CPT/HCPCS: 73030

== ENCOUNTER 2021-03-15 09:50 | Observation (INO) | payer OTHER, SELFPAY ==
[2021-03-15] VITALS (15 sets, daily range): BP systolic 86–165; BP diastolic 49–90; PULSE 45–66; RESP 12–19; TEMP 35.9–36.7; O2SAT 94–99; BMI 27.3
--- NOTE | 2021-03-15 | PATH_ITS ---
[facility] Accession Number: [id number] . 01 Material submitted: . appendix - APPENDIX . 02 Diagnosis: Appendix, Appendectomy: Mild acute appendicitis. No evidence of neoplasm. MRV 03/18/2021 1332 Local . 02 Electronically signed: . Antonio Hemphill MD, PhD, Pathologist NPI- [id number] . 01 Gross description: . The specimen is received in formalin, labeled appendix, and consists of a 3.9 cm in length by 1.0 cm in diameter vermiform appendix with minimal attached ferguson-yellow, lobulated mesoappendix. The serosa is ferguson-pink and smooth with focal fibrinous adhesions. Sectioning reveals a ferguson mucosa and a lumen measuring 0.6 cm in diameter. The specimen is entirely submitted, to include the en face margin (blue), central cross-sections, and bisected tips in cassettes A1-A2. ([id number]) /FRR 03/16/2021 1626 Local . 02 Pathologist provided ICD-10: K35.80 . 02 CPT . 493945 Performed at: 01 [facility] [address] [place] [address], [place], [place] [id number] MD Esa Kwon MD Phone: [phone] Performed at: [address] [facility] [id number] [place], [place] [id number] MD Ela Velasco MD Phone: [phone]
[2021-03-15 10:09] LABS: Add Manual Diff / Slide Review NO; Basophils Absolute Auto 100 /uL (0-100); Basophils Percent Auto 0.8 % (0-2); Eosinophils Absolute Auto 200 /uL (0-450); Eosinophils Percent Auto 1.9 % (2-4); Hematocrit 43.2 % (41-53); Hemoglobin 14.8 g/dL (13.5-17.5); Lymphocytes Absolute Auto 1600 /uL (1100-4500); Lymphocytes Percent Auto 17.1 % (25-40); Mean Corpuscular HGB Conc 34.1 % (30-36); Mean Corpuscular Hemoglobin 31.7 PG (26-34); Mean Corpuscular Volume 92.8 fL (80-100); Monocytes Absolute Auto 700 /uL (0-900); Monocytes Percent Auto 7.8 % (3-14); Neutrophils Absolute Auto 6900 /uL (1500-7000); Neutrophils Percent Auto 72.4 % (50-75); Platelet Count 268 X10^3/uL (150-400); Red Blood Cell Count 4.66 X10^6/uL (4.5-5.9); Red Cell Distribution Width 12.2 % (11.6-14.8); White Blood Cell Count 9.5 X10^3/uL (4.5-11.0)
--- NOTE | 2021-03-15 10:16 | DI.CT.S_ITS ---
PROCEDURE: CT ABDOMEN PELVIS W CON INDICATIONS: right lower quad pain TECHNIQUE: After the administration of oral and IV contrast, axial sections were acquired from the lung bases to the pubic symphysis. Coronal and sagittal reformats were performed. For radiation dose reduction, the following was used: automated exposure control, adjustment of mA and/or kV according to patient size. COMPARISON: [facility], CT, ABDOMEN/PELVIS WITH CONTRAST, 03/16/2013, 13:31. FINDINGS: Image quality: Excellent. Lung bases: Unremarkable. Heart: Normal in size. ABDOMEN: Liver: There is a small oval lesion demonstrating hypervascular enhancement with indistinct margins in the left hepatic lobe, measuring up to 1.5 x 1.5 cm in transverse dimension on series 2, image 23. This appears similar in size to the prior study and likely represents a flash filling hemangioma. Gallbladder: Unremarkable. Biliary ducts: Unremarkable. Pancreas: Unremarkable. Spleen: Unremarkable. Adrenal Glands: Unremarkable. Kidneys and Ureters: No hydronephrosis. There are bilateral renal cysts. Stomach and Bowel: Stomach and small bowel loops are normal in caliber and wall thickness. There is a retrocecal appendix which demonstrates mild distention and wall thickening, measuring up to 0.9 cm in diameter. There is associated mild periappendiceal fat stranding. A small appendicolith is demonstrated proximally in the appendiceal lumen, measuring up to 0.3 cm. Findings are consistent with acute appendicitis. No associated free fluid, free air, or loculated fluid collections to suggest perforation. There is colonic diverticulosis without acute diverticulitis. Mild segmental wall thickening in the sigmoid colon is suggestive of a mild colitis. Peritoneum: No abnormal intraperitoneal fluid. No free air. Ventral Wall: No hernia. Abdominal Nodes: No retroperitoneal or mesenteric adenopathy by size criteria. Vessels: Aorta and inferior vena cava are normal in size. PELVIS: Pelvic Organs: Unremarkable. Bladder: Unremarkable. Pelvic Nodes: No enlarged lymph nodes. Miscellaneous: No inguinal hernias are seen. Bones: Unremarkable. IMPRESSION: 1. Acute appendicitis with a small intraluminal appendicolith. No definite evidence of perforation. Findings discussed with Dr. Lux on 03/15/21 at 10:59 a.m.. 2. Colonic diverticulosis without acute diverticulitis. Mild segmental wall thickening in the sigmoid colon may reflect a mild colitis. 3. Probable flash filling hemangioma in the left hepatic lobe appears stable in size compared to the prior study. Dictated by: Esa Bermudez M.D. on 03/15/2021 at 10:57 Approved by: Esa Bermudez M.D. on 03/15/2021 at 11:04
--- NOTE | 2021-03-15 10:16 | ED.ABDPAIN ---
HPI - Abdominal Pain <Tania Lux DO - Last Filed: 03/15/21 19:13> General Chief Complaint: Abdominal Pain Stated Complaint: Sent by [facility]- poss Appendicitis Time Seen by Provider: 03/15/21 10:05 Source: patient Mode of arrival: Ambulatory Limitations: no limitations History of Present Illness HPI narrative: Patient is a 65-year-old male with history of diverticulitis and hypertension presenting today with 3 day history of right lower quadrant pain. He says it is a relatively dull ache not like previous episodes of diverticulitis he states it is constant in nature. He denies any flank pain or radiation. He had no migration of pain. He states he is hungry but he last ate last evening. He has no fever or chills no painful or frequent urination. Related Data Previous Rx's Medication Instructions Recorded lisinopril 20 mg tablet 20 mg PO QDAY #90 tab 08/29/20 ibuprofen 600 mg tablet 600 mg PO Q6H PRN #20 tab 03/15/21 oxycodone 5 mg tablet See Rx Instructions .ROUTE 03/15/21 .COMPLEX PRN #14 tab Allergies Allergy/AdvReac Type Severity Reaction Status Date / Time No Known Drug Allergies Allergy Verified 03/15/21 15:55 Review of Systems <DO Gabriela Wray Last Filed: 03/15/21 19:13> Review of Systems Narrative: GENERAL: Denies chills, fatigue, malaise, fever, sweats, travel HEENT: Denies sinus pain, ear pain, sore throat, difficulty swallowing, neck pain RESPIRATORY: Denies dyspnea, cough, wheezing, hemoptysis, sputum. CARDIOVASCULAR: Denies chest pain, palpitations, orthopnea, edema GASTROINTESTINAL: See HPI : Denies dysuria, frequency, incontinence, hematuria, urinary retention, flank pain. MUSCULOSKELETAL: Denies weakness, joint pain, or bony pain SKIN: No rash, no erythema, no pruritus NEUROLOGIC: Denies weakness, dizziness, headache, numbness, change in speech, confusion PSYCHIATRIC: No concerning psychosocial issues. 12 point review of systems is negative except for those stated above and HPI Patient History <DO Gabriela Wray Last Filed: 03/15/21 19:13> Medical History Diverticular disease Eczema Hypertension Surgical History (Updated 10/01/21 @ 15:55 by Declan Black RN) H/O sinus surgery History of arthroscopy of both knees (2000) History of shoulder surgery (1994) Family History Father Lung disease Smoker Oxygen dependent Mother Smoker Oxygen dependent Social History household members: spouse Smoking Status: Never smoker alcohol intake: current substance use type: does not use Smoking Status: Never smoker alcohol intake frequency: 0-2 drinks per day Substance Use Type: does not use Exam <Tania Lux DO - Last Filed: 03/15/21 19:13> Initial Vital Signs Initial Vital Signs: Vital Signs Temperature 97.3 F L 03/15/21 09:50 Pulse Rate 66 03/15/21 09:50 Respiratory Rate 18 03/15/21 09:50 Blood Pressure 154/86 H 03/15/21 09:50 Pulse Oximetry 99 03/15/21 09:50 GENERAL: Alert well-appearing 65-year-old male and in no acute distress. HEENT: Head atraumatic,EOMI, pupils reactive, face symmetric, moist] mucous membranes CARDIOVASCULAR: Regular rate and rhythm without murmurs, rubs or gallops. RESPIRATORY: Breath sounds equal bilaterally, no wheezes rales or rhonchi. ABDOMEN: Soft, tender right lower quadrant no guarding or rebound : No CVA tenderness EXTREMITIES: Normal range of motion, no clubbing or edema. Neurovascularly intact NEUROLOGICAL: Alert and oriented x4.Normal gait and speech. SKIN: Warm, dry, no laceration, no petechiae, no rashes or lesions. 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 Acetaminophen (Acetaminophen 325 Mg Tablet) 650 mg PO Q6HR PRN PRN Reason: Pain, Mild (1-3) Enoxaparin Sodium (Enoxaparin 40 Mg/0.4 Ml Syringe) 40 mg SUBCUT DAILY MARIELLA Gabapentin (Gabapentin 300 Mg Capsule) 300 mg PO BID MARIELLA Lactated Ringer's (Lactated Ringers) 1,000 mls @ 125 mls/hr IV CONT MARIELLA Last Admin: 03/15/21 14:43 Dose: 125 mls/hr Documented by: ISIAH Ketorolac Tromethamine (Ketorolac 30 Mg/Ml Vial) 30 mg IV Q6HR PRN PRN Reason: Pain, Moderate (4-6) Stop: 03/20/21 17:54 Lisinopril (Lisinopril 20 Mg Tablet) 20 mg PO DAILY [facility] Morphine Sulfate (Morphine 4 Mg/Ml Inj) 4 mg IV Q4HR PRN PRN Reason: Pain, Severe (7-10) Naloxone HCl (Naloxone 0.4 Mg/Ml Vial) 0.2 mg IV Q2MIN PRN PRN Reason: Opiate Reversal Ondansetron HCl (Ondansetron 4 Mg/2 Ml Inj) 4 mg IV Q4HR PRN PRN Reason: Nausea And Vomiting Oxycodone HCl (Oxycodone Ir 5 Mg Tablet) 5 mg PO Q6HR PRN PRN Reason: Pain, Moderate (4-6) Discontinued Medications Acetaminophen (Acetaminophen 325 Mg Tablet) 975 mg PO NOW ONE Stop: 03/15/21 15:53 Last Admin: 03/15/21 16:13 Dose: 975 mg Documented by: [email or web address] Bupivacaine HCl (Bupivacaine 0.5% (Pf) Vial) 30 ml INJ NOW ONE Stop: 03/15/21 17:20 Last Admin: 03/15/21 17:19 Dose: 15 ml Documented by: JANET Fentanyl (Fentanyl 100 Mcg/2 Ml Inj) 0 mcg IV Q5MIN PRN PRN Reason: Pain, Severe (7-10) Gabapentin (Gabapentin 300 Mg Capsule) 300 mg PO NOW ONE Stop: 03/15/21 15:53 Last Admin: 03/15/21 16:16 Dose: 300 mg Documented by: [email or web address] Hydromorphone HCl (Hydromorphone 2 Mg Inj) 0 mg IV Q5MIN PRN PRN Reason: Pain, Mild (1-3) Piperacillin Sod/Tazobactam (Sod 3.375 gm/ Sodium Chloride) 100 mls @ 200 mls/hr IV INTRA-OP ONE Stop: 03/15/21 14:14 Last Infusion: 03/15/21 16:51 Dose: 0 mls/hr Documented by: Admin: 03/15/21 16:46 Dose: 200 mls/hr Documented by: DAVID Lactated Ringer's (Lactated Ringers) 1,000 mls @ 42 mls/hr IV CONT MARIELLA Last Admin: 03/15/21 16:15 Dose: 42 mls/hr Documented by: [email or web address] Lactated Ringer's (Lactated Ringers) 1,000 mls @ 120 mls/hr IV CONT [facility] Last Admin: 03/15/21 18:44 Dose: Not Given Documented by: KKNOTT Ondansetron HCl (Ondansetron 4 Mg/2 Ml Inj) 4 mg IV NOW PRN PRN Reason: Nausea And Vomiting Oxycodone HCl (Oxycodone Ir 5 Mg Tablet) 5 mg PO PACUNOW PRN PRN Reason: Mild or moderate pain Vital Signs Vital signs: Vital Signs - 8 hr 03/15/21 09:50 Temperature 97.3 F L Pulse Rate 66 Respiratory Rate 18 Blood Pressure 154/86 H Pulse Oximetry 99 <Lavelle Dejesus MD - Last Filed: 03/15/21 14:48> Orders Ordered: ED Orders 03/15/21 10:16 CT abdomen pelvis w con Stat 03/15/21 10:30 EKG-12 Lead Routine 03/15/21 11:19 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 Acetaminophen (Acetaminophen 325 Mg Tablet) 650 mg PO Q6HR PRN PRN Reason: Pain, Mild (1-3) Enoxaparin Sodium (Enoxaparin 40 Mg/0.4 Ml Syringe) 40 mg SUBCUT DAILY MAREILLA Gabapentin (Gabapentin 300 Mg Capsule) 300 mg PO BID MARIELLA Lactated Ringer's (Lactated Ringers) 1,000 mls @ 125 mls/hr IV CONT MARIELLA Last Admin: 03/15/21 14:43 Dose: 125 mls/hr Documented by: ISIAH Ketorolac Tromethamine (Ketorolac 30 Mg/Ml Vial) 30 mg IV Q6HR PRN PRN Reason: Pain, Moderate (4-6) Stop: 03/20/21 17:54 Lisinopril (Lisinopril 20 Mg Tablet) 20 mg PO DAILY [facility] Morphine Sulfate (Morphine 4 Mg/Ml Inj) 4 mg IV Q4HR PRN PRN Reason: Pain, Severe (7-10) Naloxone HCl (Naloxone 0.4 Mg/Ml Vial) 0.2 mg IV Q2MIN PRN PRN Reason: Opiate Reversal Ondansetron HCl (Ondansetron 4 Mg/2 Ml Inj) 4 mg IV Q4HR PRN PRN Reason: Nausea And Vomiting Oxycodone HCl (Oxycodone Ir 5 Mg Tablet) 5 mg PO Q6HR PRN PRN Reason: Pain, Moderate (4-6) Discontinued Medications Acetaminophen (Acetaminophen 325 Mg Tablet) 975 mg PO NOW ONE Stop: 03/15/21 15:53 Last Admin: 03/15/21 16:13 Dose: 975 mg Documented by: [email or web address] Bupivacaine HCl (Bupivacaine 0.5% (Pf) Vial) 30 ml INJ NOW ONE Stop: 03/15/21 17:20 Last Admin: 03/15/21 17:19 Dose: 15 ml Documented by: JANET Fentanyl (Fentanyl 100 Mcg/2 Ml Inj) 0 mcg IV Q5MIN PRN PRN Reason: Pain, Severe (7-10) Gabapentin (Gabapentin 300 Mg Capsule) 300 mg PO NOW ONE Stop: 03/15/21 15:53 Last Admin: 03/15/21 16:16 Dose: 300 mg Documented by: [email or web address] Hydromorphone HCl (Hydromorphone 2 Mg Inj) 0 mg IV Q5MIN PRN PRN Reason: Pain, Mild (1-3) Piperacillin Sod/Tazobactam (Sod 3.375 gm/ Sodium Chloride) 100 mls @ 200 mls/hr IV INTRA-OP ONE Stop: 03/15/21 14:14 Last Infusion: 03/15/21 16:51 Dose: 0 mls/hr Documented by: Admin: 03/15/21 16:46 Dose: 200 mls/hr Documented by: BUSB Lactated Ringer's (Lactated Ringers) 1,000 mls @ 42 mls/hr IV CONT [facility] Last Admin: 03/15/21 16:15 Dose: 42 mls/hr Documented by: [email or web address] Lactated Ringer's (Lactated Ringers) 1,000 mls @ 120 mls/hr IV CONT [facility] Last Admin: 03/15/21 18:44 Dose: Not Given Documented by: KKNOTT Ondansetron HCl (Ondansetron 4 Mg/2 Ml Inj) 4 mg IV NOW PRN PRN Reason: Nausea And Vomiting Oxycodone HCl (Oxycodone Ir 5 Mg Tablet) 5 mg PO PACUNOW PRN PRN Reason: Mild or moderate pain Vital Signs Vital signs: Vital Signs - 8 hr 03/15/21 09:50 Temperature 97.3 F L Pulse Rate 66 Respiratory Rate 18 Blood Pressure 154/86 H Pulse Oximetry 99 MDM - Abdominal Pain <Tania Lux, - Last Filed: 03/15/21 19:13> Lab Data Result diagrams: 03/15/21 09:57 03/15/21 09:57 Labs: Lab Results 03/15/21 03/15/21 03/15/21 Range/Units 09:57 09:57 11:19 WBC 9.5 (4.5-11.0) X10^3/uL RBC 4.66 (4.5-5.9) X10^6/uL Hgb 14.8 (13.5-17.5) g/dL Hct 43.2 (41-53) % MCV 92.8 (80-100) fL MCH 31.7 (26-34) PG MCHC 34.1 (30-36) % RDW 12.2 (11.6-14.8) % Plt Count 268 (150-400) X10^3/uL Neut % (Auto) 72.4 (50-75) % Lymph % (Auto) 17.1 L (25-40) % [place] % (Auto) 7.8 (3-14) % Eos % (Auto) 1.9 L (2-4) % Baso % (Auto) 0.8 (0-2) % Neut # (Auto) 6900 (1342-7838) /uL Lymph # (Auto) 1600 (4927-5801) /uL [place] # (Auto) 700 (0-900) /uL Eos # (Auto) 200 (0-450) /uL Baso # (Auto) 100 (0-100) /uL Sodium 140 (137-145) mmol/L Potassium 3.8 (3.4-5.1) mmol/L Chloride 104 (98-107) mmol/L Carbon Dioxide 31 (22-32) mmol/L BUN 12 (9-20) mg/dL Creatinine 0.82 (0.66-1.25) mg/dL Estimated GFR > 60.0 (>60) mL/min BUN/Creatinine Ratio 14.6 (6-22) Glucose 96 (80-110) mg/dL Calcium 9.7 (8.4-10.2) mg/dL Total Bilirubin 1.4 H (0.2-1.3) mg/dL AST 34 (17-59) IU/L ALT 20 (<50) IU/L Alkaline Phosphatase 79 (38-126) U/L Total Protein 7.3 (6.3-8.2) g/dL Albumin 4.2 (3.5-5.0) g/dL Globulin 3.1 (1.7-4.1) g/dL Albumin/Globulin Ratio 1.4 (1.0-2.8) Lipase 30 (23-300) U/L SARS-CoV-2 (PCR) Negative (Negative) Imaging Data CT scan - abdomen/pelvis: Radiologist's Impression: PROCEDURE:? CT ABDOMEN PELVIS W CON ? INDICATIONS:? right lower quad pain ? TECHNIQUE:? After the administration of oral and IV contrast, axial sections were acquired from the lung bases to the pubic symphysis.? Coronal and sagittal reformats were performed.? For radiation dose reduction, the following was used:? automated exposure control, adjustment of mA and/or kV according to patient size. ? COMPARISON:? [facility], CT, ABDOMEN/PELVIS WITH CONTRAST, 03/16/2013, 13:31. ? FINDINGS:? Image quality:? Excellent.? ? Lung bases:? Unremarkable.? ? Heart:? Normal in size. ? ? ABDOMEN: Liver:? There is a small oval lesion demonstrating hypervascular enhancement with indistinct margins in the left hepatic lobe, measuring up to 1.5 x 1.5 cm in transverse dimension on series 2, image 23. This appears similar in size to the prior study and likely represents a flash filling hemangioma. Gallbladder:? Unremarkable.? ? Biliary ducts:? Unremarkable.? ? Pancreas:? Unremarkable.? ? Spleen:? Unremarkable.? ? Adrenal Glands:? Unremarkable.? ? Kidneys and Ureters:? No hydronephrosis.? There are bilateral renal cysts.? ? ? Stomach and Bowel:? Stomach and small bowel loops are normal in caliber and wall thickness.? There is a retrocecal appendix which demonstrates mild distention and wall thickening, measuring up to 0.9 cm in diameter.? There is associated mild periappendiceal fat stranding.? A small appendicolith is demonstrated proximally in the appendiceal lumen, measuring up to 0.3 cm.? Findings are consistent with acute appendicitis.? No associated free fluid, free air, or loculated fluid collections to suggest perforation.? There is colonic diverticulosis without acute diverticulitis.? Mild segmental wall thickening in the sigmoid colon is suggestive of a mild colitis. Peritoneum:? No abnormal intraperitoneal fluid.? No free air.? ? Ventral Wall: ? No hernia.? Abdominal Nodes:? No retroperitoneal or mesenteric adenopathy by size criteria.? Vessels:? Aorta and inferior vena cava are normal in size.? ? PELVIS: Pelvic Organs:? Unremarkable.? ? Bladder:? Unremarkable.? ? Pelvic Nodes: No enlarged lymph nodes.? Miscellaneous: No inguinal hernias are seen. ? ? ? Bones:? Unremarkable.? IMPRESSION:? ? 1. Acute appendicitis with a small intraluminal appendicolith.? No definite evidence of perforation.? Findings discussed with Dr. Lux on 03/15/21 at 10:59 a.m.. ? 2. Colonic diverticulosis without acute diverticulitis.? Mild segmental wall thickening in the sigmoid colon may reflect a mild colitis. ? 3. Probable flash filling hemangioma in the left hepatic lobe appears stable in size compared to the prior study. ? ? Dictated by: Esa Bermudez M.D. on 03/15/2021 at 10:57 ? ECG Data Interpretation: Normal sinus rhythm rate 54 SD interval 148 QRS [address] changes no T-wave inversions, similar to previous MDM Narrative Medical decision making narrative: The patient is very mild right lower quadrant pain ongoing consistently for the last 2 days. It is suspicion for appendicitis. CT it does come for appendicitis appendicolith. Dr. Dejesus surgery in ED to see and evaluate patient. <Lavelle Dejesus MD - Last Filed: 03/15/21 14:48> Lab Data Labs: Lab Results 03/15/21 03/15/21 03/15/21 Range/Units 09:57 09:57 11:19 WBC 9.5 (4.5-11.0) X10^3/uL RBC 4.66 (4.5-5.9) X10^6/uL Hgb 14.8 (13.5-17.5) g/dL Hct 43.2 (41-53) % MCV 92.8 (80-100) fL MCH 31.7 (26-34) PG MCHC 34.1 (30-36) % RDW 12.2 (11.6-14.8) % Plt Count 268 (150-400) X10^3/uL Neut % (Auto) 72.4 (50-75) % Lymph % (Auto) 17.1 L (25-40) % [place] % (Auto) 7.8 (3-14) % Eos % (Auto) 1.9 L (2-4) % Baso % (Auto) 0.8 (0-2) % Neut # (Auto) 6900 (5771-7259) /uL Lymph # (Auto) 1600 (5454-5835) /uL [place] # (Auto) 700 (0-900) /uL Eos # (Auto) 200 (0-450) /uL Baso # (Auto) 100 (0-100) /uL Sodium 140 (137-145) mmol/L Potassium 3.8 (3.4-5.1) mmol/L Chloride 104 (98-107) mmol/L Carbon Dioxide 31 (22-32) mmol/L BUN 12 (9-20) mg/dL Creatinine 0.82 (0.66-1.25) mg/dL Estimated GFR > 60.0 (>60) mL/min BUN/Creatinine Ratio 14.6 (6-22) Glucose 96 (80-110) mg/dL Calcium 9.7 (8.4-10.2) mg/dL Total Bilirubin 1.4 H (0.2-1.3) mg/dL AST 34 (17-59) IU/L ALT 20 (<50) IU/L Alkaline Phosphatase 79 (38-126) U/L Total Protein 7.3 (6.3-8.2) g/dL Albumin 4.2 (3.5-5.0) g/dL Globulin 3.1 (1.7-4.1) g/dL Albumin/Globulin Ratio 1.4 (1.0-2.8) Lipase 30 (23-300) U/L SARS-CoV-2 (PCR) Negative (Negative) Discharge Plan Departure Patient Disposition: Admitted As Inpatient Clinical Impression: Acute appendicitis Qualifiers: Acute appendicitis type: with localized peritonitis Appendicitis gangrene presence: without gangrene Appendicitis perforation presence: without perforation Appendicitis abscess presence: without abscess Qualified Code(s): K35.30 - Acute appendicitis with localized peritonitis, without perforation or gangrene Admit Date/Time: 03/15/21 11:30 Admit Provider: Lavelle Dejesus
[2021-03-15 10:26] LABS: Alanine Aminotransferase 20 IU/L (<50); Albumin 4.2 g/dL (3.5-5.0); Albumin Globulin Ratio 1.4 (1.0-2.8); Alkaline Phosphatase 79 U/L (38-126); Aspartate Aminotransferase 34 IU/L (17-59); BUN Creatinine Ratio 14.6 (6-22); Bilirubin Total 1.4 mg/dL (0.2-1.3); Blood Urea Nitrogen 12 mg/dL (9-20); Calcium 9.7 mg/dL (8.4-10.2); Carbon Dioxide 31 mmol/L (22-32); Chloride 104 mmol/L (98-107); Estimated Glomerular Filt Rate > 60.0 mL/min (>60); Globulin 3.1 g/dL (1.7-4.1); Glucose 96 mg/dL (80-110); HEMOLYSIS < 15 (0-50); Lipase 30 U/L (23-300); Potassium 3.8 mmol/L (3.4-5.1); Sodium 140 mmol/L (137-145); Total Protein 7.3 g/dL (6.3-8.2)
[2021-03-15 12:27] LABS: COVID19 - ADMIT (NP swab/PCR) Negative (Negative)
--- NOTE | 2021-03-15 14:03 | P.HP_ITS ---
History of Present Illness History of Present Illness Chief complaint: Sent by [facility]- poss Appendicitis Narrative: The patient is a gentleman who developed abdominal pain for 5 days ago. Was vague in located in the lower abdomen. Over time it has settled in the right lower quadrant. He thought initially it white be from his diverticulitis he has had in the past. However this pain has been quite different than that pain. He has had an auto nausea or vomiting but has been anorexic. He had been going to work but having to come home early because he is tired and sore. Patient History Medical History Diverticular disease Eczema Hypertension Surgical History History of arthroscopy of both knees (2000) History of shoulder surgery (1994) Family & Social History Family History Father Lung disease Smoker Oxygen dependent Mother Smoker Oxygen dependent Social History: household members spouse Safety & Behavioral: Feels Safe in Current Yes Environment Been Physically Hurt or No Threatened By a Person Tobacco & Substance use: Smoking Status Never smoker alcohol intake current alcohol intake frequency 0-2 drinks per day Substance Use Type does not use Meds Home Medications and Allergies Home Medications Medication Instructions Recorded Confirmed Type lisinopril 20 mg tablet 20 mg PO QDAY #90 tab 08/29/20 03/15/21 Rx Allergies Allergy/AdvReac Type Severity Reaction Status Date / Time No Known Drug Allergies Allergy Verified 03/15/21 09:58 Review of Systems Review of Systems Narrative: Patient has no visual difficulties. No double vision. He does were glasses. He has very large tonsils the sometimes makes it hard for him to swallow pills or lettuce. No chest pain or heart related problems except he used to exercise a great deal and was told that he has developed a stiff and heart that has no anatomic problem. He has cut way down on his exercise. No black or bloody bowel movements. He is up-to-date on his colonoscopies. No seizures or blackouts. No anxiety or depression. He does suffer from hypertension is on lisinopril. No unusual bruising or bleeding. Exam Vital Signs (past 8 hours): - 03/15/21 09:50 03/15/21 11:40 Temperature 97.3 F L Pulse Rate 66 53 L Respiratory Rate 18 19 Blood Pressure 154/86 H 165/90 H Pulse Oximetry 99 99 Oxygen Delivery Method Room Air Narrative Exam Narrative: Patient is in no apparent distress. His eyes are nonicteric. Neck is supple. No nodes in the neck supraclavicular areas. Lungs are clear to auscultation. No rales or rhonchi. Heart regular rate and rhythm without murmur gallop. No heave lift or thrill. Lungs percuss equally abdomen is scaphoid and soft. No ventral hernias are appreciated. He has localized tenderness in the right lower quadrant. No flank tenderness. Patient is alert and oriented x3. Speech rate and content are appropriate. Affect is appropriate. Objective Imaging CT scan - abdomen: My impression: Appendicoliths and a appendix that appears to be either attached to the right abdominal wall a retrocecal. Not inflammation around it. Diverticulosis noted. Labs Result Diagrams: 03/15/21 09:57 03/15/21 09:57 Labs: Laboratory Results - last 24 hr 03/15/21 03/15/21 03/15/21 09:57 09:57 11:19 WBC 9.5 RBC 4.66 Hgb 14.8 Hct 43.2 MCV 92.8 MCH 31.7 MCHC 34.1 RDW 12.2 Plt Count 268 Neut % (Auto) 72.4 Lymph % (Auto) 17.1 L [place] % (Auto) 7.8 Eos % (Auto) 1.9 L Baso % (Auto) 0.8 Neut # (Auto) 6900 Lymph # (Auto) 1600 [place] # (Auto) 700 Eos # (Auto) 200 Baso # (Auto) 100 Sodium 140 Potassium 3.8 Chloride 104 Carbon Dioxide 31 BUN 12 Creatinine 0.82 Estimated GFR > 60.0 BUN/Creatinine Ratio 14.6 Glucose 96 Calcium 9.7 Total Bilirubin 1.4 H AST 34 ALT 20 Alkaline Phosphatase 79 Total Protein 7.3 Albumin 4.2 Globulin 3.1 Albumin/Globulin Ratio 1.4 Lipase 30 SARS-CoV-2 (PCR) Negative Assessment & Plan Assessment and plan (1) Acute appendicitis: Qualifiers: Acute appendicitis type: with localized peritonitis Appendicitis abscess presence: without abscess Appendicitis gangrene presence: without gangrene Appendicitis perforation presence: without perforation Qualified Code(s): K35.30 - Acute appendicitis with localized peritonitis, without perforation or gangrene Status: Acute Plan: History is somewhat atypical for acute appendicitis though his exam of his abdomen is more typical. He has been afebrile and has a normal white count which makes me suspicious that this process is much earlier than it seems. The CT scan is rather convincing however. I would recommend a laparoscopic cholecystectomy and indicated procedures. I have discussed this with the patient. Risks of bleeding infection hernia discussed with him. He appears to understand wishes to proceed. Time Spent With Patient Critical Care time: I spent a total of [] minutes of critical care time on this patient's care today; this time is exclusive of procedural time.
--- NOTE | 2021-03-15 14:40 | CM.MNRNOTE ---
Patient is admitted to room 209 with appendicitis. He denies pain or discomfort at this time. Patient is alert and oriented x3. He moves around independently in bed. He is npo and will be going to surgery this evening.
[2021-03-15] MEDS: LACTATED RINGERS 1,000 ML 125 ML IV (14:43)
--- NOTE | 2021-03-15 14:50 | PM.PREOP ---
Pre-operative Note COVID-19 COVID-19 status: Negative Result date/Date tested (Pos, Neg/Pending): 03/15/21 Interval Note History & Physical reviewed/Exam performed by Physician: Yes Changes to H&P: No
[2021-03-15] MEDS: ACETAMINOPHEN 325 MG TABLET 975 MG PO (16:13)
[2021-03-15] MEDS: LACTATED RINGERS 1,000 ML 42 ML IV (16:15)
[2021-03-15] MEDS: GABAPENTIN 300 MG CAPSULE PO ×2 (16:16→20:09)
[2021-03-15] MEDS: PIPERACILLIN/TAZO 3.375 GM in SODIUM CHLORIDE 0.9% 100 ML 200 ML IV (16:46)
--- NOTE | 2021-03-15 17:09 | SUR.OPER ---
Supine on padded OR bed, head on pillow, arms padded and tucked at sides, legs uncrossed, safety belt at thigh, tape over blanket over lower legs .
[2021-03-15] MEDS: BUPIVACAINE 0.5% (PF) VIAL 30 ML INJ (17:19)
--- NOTE | 2021-03-15 17:46 | PM.OP.1 ---
Operative Date/Time/Diagnoses Date of procedure: 03/15/21 Time of procedure: 17:46 Pre-op diagnosis: Acute appendicitis Post-op diagnosis: same Procedure & Clinicians Procedure: Laparoscopic appendectomy Same procedure as scheduled: Yes Indications: Patient with symptoms and CT findings consistent with acute appendicitis brought to the operating room. Surgeon: Lavelle Dejesus Click Yes if Unassisted: Yes Anesthesia Type: General Operative Notes Findings: Inflamed appendix laying adjacent to the cecum against the right wall of the abdominal wall Closure Type: primary Specimen(s): other (Appendix) Estimated Blood Loss (mL): 5 Blood products transfused: none Procedure in detail: The patient was placed supine on the operating room table and underwent general endotracheal anesthesia. The patient was prepped and draped in the usual fashion. Local anesthetic was infiltrated and an incision made beneath the umbilicus. It was carried down under direct vision through the fascia into the peritoneal cavity. Stay sutures of 0 Vicryl were placed in the fascia. A 12 mm port was inserted and 2 additional ports were placed. These were 5 mm ports. One was placed between the umbilicus and pubis and 1 in the left lower quadrant. The cecum and terminal ileum were identified. Based on the CT scan I expected the appendix to be against the right abdominal wall. I rotated the cecum medially and identified the appendix. I divided the attachments of the appendix to the lateral abdominal wall and then divided the mesoappendix to its base. This was done using a LigaSure device. Once the base of the appendix was clearly identified and 0 PDS loop was placed at the base of the appendix and cinched down. The appendix was occluded with a clamp distal to this and the appendix transected between the tie and the clamp using LigaSure device The appendix was immediately placed in a bag. There was no bleeding from the base of the appendix. The right gutter and pelvis were carefully irrigated and suctioned free of fluid. Satisfied that all the fluid had been removed, The ports were all removed. The stay sutures at the umbilicus were tied. The wounds were all irrigated and 4 0 Vicryl subcuticular interrupted sutures were used to close the skin. Mastisol and Steri-Strips were applied along with Band-Aids. The patient was awakened, extubated and taken the recovery room in good condition. The patient tolerated the procedure well. A Carmichael catheter which had been placed once the patient was intubated was removed prior to him wakening. Complications: none Post-operative Condition: stable Disposition: PACU
[2021-03-16] MEDS: LACTATED RINGERS 1,000 ML 125 ML IV (00:40)
[2021-03-16 00:44] VITALS: BP 153/92; PULSE 57; RESP 14; TEMP 36.1; O2SAT 97
--- NOTE | 2021-03-16 02:56 | PC.NURSE ---
Patient is alert and oriented. Breath sounds CTA with RA sat of 97%. HRR but bradycardic with rate in 50's which patient states is normal for him. BP elevated at 153/92; states he takes BP medication and tends to run high. Denied nausea. BT hypoactive and has not yet passed any flatus following surgery. Abdomen is soft but tender. Bandaid dressings x 3 are CDI. Is voiding but has some hesitancy and mild burning with urination. Is able to turn himself in bed and is up to bathroom with SBA. Wearing bilateral calf SCD's. States pain is minimal at 1-2/10 and declines pain medication. Fall risk score is moderate but patient calls for assistance appropriately so alarm is not activated at this time.
[2021-03-16] MEDS: OXYCODONE IR 5 MG TABLET PO (04:12)
[2021-03-16 05:10] VITALS: BP 142/76; PULSE 56; RESP 16; TEMP 36.1; O2SAT 98
[2021-03-16 06:45] LABS: Add Manual Diff / Slide Review NO; Basophils Absolute Auto 0 /uL (0-100); Basophils Percent Auto 0.3 % (0-2); Eosinophils Absolute Auto 0 /uL (0-450); Hematocrit 41.9 % (41-53); Hemoglobin 14.3 g/dL (13.5-17.5); Lymphocytes Absolute Auto 900 /uL (1100-4500); Lymphocytes Percent Auto 8.6 % (25-40); Mean Corpuscular HGB Conc 34.2 % (30-36); Mean Corpuscular Hemoglobin 31.8 PG (26-34); Mean Corpuscular Volume 92.8 fL (80-100); Monocytes Absolute Auto 200 /uL (0-900); Neutrophils Absolute Auto 8900 /uL (1500-7000); Neutrophils Percent Auto 89.1 % (50-75); Platelet Count 266 X10^3/uL (150-400); Red Blood Cell Count 4.51 X10^6/uL (4.5-5.9); Red Cell Distribution Width 12.3 % (11.6-14.8)
[2021-03-16 08:06] VITALS: BP 129/96; PULSE 53; RESP 16; TEMP 36.1; O2SAT 98
[2021-03-16 08:46] VITALS: BP 129/96; PULSE 53
[2021-03-16] MEDS: lisinopriL 20 MG TABLET PO (08:46)
[2021-03-16] MEDS: ENOXAPARIN 40 MG/0.4 ML SYRINGE SUBCUT (08:47)
[2021-03-16] MEDS: GABAPENTIN 300 MG CAPSULE PO (08:47)
[2021-03-16] MEDS: ACETAMINOPHEN 325 MG TABLET 650 MG PO (08:47)
--- NOTE | 2021-03-16 11:42 | PC.NURSE ---
Day shift: Paperwork signed and all questions answered. Pt has all personal belongings. scripts sent electronic by to Pt's pharmacy. Pain well controlled w/ Tylenol here. Lap sites remains CDI. Taken to car that his spouse is driving. Taken in WC by this health science writer. Pt has been voiding well. Pt has denied any nausea or constipation. LEft unit at approx 1130.
== END 2021-03-16 11:44 | disposition home or self-care (01) ==
LOC: ED 11:26 → AC 11:47
PROVIDERS: Admitting Provider Specialist; Emergency Provider Emergency Medicine; PCP Family Medicine; Referring Provider Emergency Medicine; Visit Provider Specialist
PROC: 0DTJ4ZZ Resection of Appendix, Percutaneous Endoscopic Approach (ICD-10-PCS; CPT 44970; principal; 2021-03-15 16:15)
DX: K35.80 Unspecified acute appendicitis (principal); I10 Essential (primary) hypertension
CPT/HCPCS: 44970; 36415; 74177; 80053; 81003; 83690; 85025; 87635; 93005; 96360; 96361; 96372; 99220; 99284; 99285; C9803; G0378; J0330; J1100; J1650; J1885; J2405; J2543; J2704; J3010

== ENCOUNTER → 2021-03-22 08:49 | Outpatient (CLI) | payer OTHER, SELFPAY ==
[2021-03-15 13:54] VITALS: BMI 27.3
== END ==
PROVIDERS: PCP Family Medicine; Visit Provider Family Medicine
DX: R30.0 Dysuria (principal); R35.0 Frequency of micturition
CPT/HCPCS: 87086

== ENCOUNTER 2021-05-31 12:47 | Emergency (ER) | payer OTHER, SELFPAY ==
[2021-03-15 13:54] VITALS: BMI 27.3
[2021-05-31] VITALS (10 sets, daily range): BP systolic 115–146; BP diastolic 79–94; PULSE 51–67; RESP 16–18; TEMP 36.6; O2SAT 97–100; BMI 25.1
[2021-05-31 13:55] LABS: Add Manual Diff / Slide Review NO; Basophils Absolute Auto 0 /uL (0-100); Basophils Percent Auto 0.7 % (0-2); Eosinophils Absolute Auto 100 /uL (0-450); Eosinophils Percent Auto 1.1 % (2-4); Hematocrit 45.4 % (41-53); Hemoglobin 15.9 g/dL (13.5-17.5); Lymphocytes Absolute Auto 1300 /uL (1100-4500); Lymphocytes Percent Auto 22.3 % (25-40); Mean Corpuscular Volume 91.4 fL (80-100); Monocytes Absolute Auto 500 /uL (0-900); Monocytes Percent Auto 7.7 % (3-14); Neutrophils Absolute Auto 4100 /uL (1500-7000); Neutrophils Percent Auto 68.2 % (50-75); Platelet Count 284 X10^3/uL (150-400); Red Blood Cell Count 4.97 X10^6/uL (4.5-5.9); Red Cell Distribution Width 12.6 % (11.6-14.8)
[2021-05-31 13:57] LABS: Alanine Aminotransferase 29 IU/L (<50); Albumin 4.7 g/dL (3.5-5.0); Albumin Globulin Ratio 1.5 (1.0-2.8); Alkaline Phosphatase 59 U/L (38-126); Aspartate Aminotransferase 39 IU/L (17-59); BUN Creatinine Ratio 13.4 (6-22); Bilirubin Total 1.2 mg/dL (0.2-1.3); Blood Urea Nitrogen 13 mg/dL (9-20); Calcium 9.8 mg/dL (8.4-10.2); Carbon Dioxide 32 mmol/L (22-32); Chloride 103 mmol/L (98-107); Estimated Glomerular Filt Rate > 60.0 mL/min (>60); Globulin 3.1 g/dL (1.7-4.1); Glucose 83 mg/dL (80-110); HEMOLYSIS < 15 (0-50); Lipase 38 U/L (23-300); Sodium 141 mmol/L (137-145); Total Protein 7.8 g/dL (6.3-8.2)
--- NOTE | 2021-05-31 15:10 | DI.CT.S_ITS ---
PROCEDURE: CT ABDOMEN PELVIS W CON INDICATIONS: severe RLQ pain, recent appy, failed outpatient ABX TECHNIQUE: After the administration of intravenous contrast, axial sections acquired from the lung bases to the pubic symphysis. Coronal and sagittal reformats were performed. For radiation dose reduction, the following was used: automated exposure control, adjustment of mA and/or kV according to patient size. COMPARISON: [facility], CT, CT ABDOMEN PELVIS W CON, 03/15/2021, 10:34. FINDINGS: Image quality: Excellent. Lung bases: Unremarkable. Heart: No significant findings. ABDOMEN: Liver: Unremarkable. Gallbladder: Unremarkable. Biliary ducts: Unremarkable. Pancreas: Unremarkable. Spleen: Unremarkable. Adrenal Glands: Unremarkable. Kidneys and Ureters: Unremarkable. Stomach and Bowel: Stomach, small bowel loops, and colon are unremarkable. Appendix not seen. No evidence of appendicitis. Peritoneum: No abnormal intraperitoneal fluid. No free air. Ventral Wall: No hernias. Abdominal Nodes: No retroperitoneal or mesenteric adenopathy by size criteria. Vessels: Aorta and inferior vena cava are normal in size. PELVIS: Pelvic Organs: Unremarkable. Bladder: Unremarkable. Pelvic Nodes: No enlarged lymph nodes. Miscellaneous: No hernias are seen. Bones: Unremarkable. IMPRESSION: 1. No acute process. No explanation for right lower quadrant pain. Dictated by: Ramírez Ma M.D. on 05/31/2021 at 14:33 Approved by: Ramírez Ma M.D. on 05/31/2021 at 14:35
--- NOTE | 2021-05-31 15:15 | ED_ITS ---
HPI - Abdominal Pain General Chief Complaint: Abdominal Pain Stated Complaint: Possible Diverticulitis Time Seen by Provider: 05/31/21 15:06 Source: patient Mode of arrival: Ambulatory History of Present Illness HPI narrative: 65-year-old male nonsmoker with history of hypertension presents with right lower quadrant pain. He was seen in early March and had similar symptoms and was found to have an appendicitis which required surgical intervention. He was doing fine and well until relatively recently when he started developing a re currence of right lower quadrant pain which felt similar to prior episodes of diverticulitis. He thinks it likely started after he felt a pulling sensation in his RLQ after throwing some logs. He was seen at the walk-in clinic and was offered CT scan but elected to try a course of outpatient antibiotics (Cipro and Flagyl) he presents today with worsening pain. His pain seems to be worse when he moves and potentially when he eats. It improves with rest. He is still having bowel movements and passing gas. He denies any urinary complaints such as dysuria, frequency or urgency. He denies any radiation to his back. He has had nausea but denies any vomiting and still has a strong appetite. Related Data Previous Rx's Medication Instructions Recorded lisinopril 20 mg tablet 20 mg PO QDAY #90 tab 08/29/20 ciprofloxacin HCl 500 mg tablet 500 mg PO BID 7 Days #14 tab 05/29/21 (Cipro) metronidazole 500 mg tablet 500 mg PO Q8H 7 Days #21 tab 05/29/21 Allergies Allergy/AdvReac Type Severity Reaction Status Date / Time No Known Drug Allergies Allergy Verified 05/31/21 13:17 Review of Systems Review of Systems Narrative: GENERAL: Denies chills, fatigue, malaise, fever, sweats. HEENT: Denies sinus pain, ear pain, sore throat, difficulty swallowing, dizziness. RESPIRATORY: Denies dyspnea, cough, wheezing, hemoptysis, sputum. CARDIOVASCULAR: Denies chest pain, palpitations, orthopnea, edema, GASTROINTESTINAL: See HPI : Denies dysuria, frequency, incontinence, hematuria, urinary retention. MUSCULOSKELETAL: denies weakness, joint pain, or bony pain SKIN: Denies rash, skin lesions, or other NEUROLOGIC: Denies weakness, headache, numbness, change in speech, confusion, seizures, incoordination. PSYCHIATRIC: No concerning psychosocial issues. 12 point review of systems is negative except for those stated above Patient History Medical History Diverticular disease Eczema Hypertension RLQ abdominal pain Surgical History H/O sinus surgery History of arthroscopy of both knees (2000) History of shoulder surgery (1994) Family History Father Lung disease Smoker Oxygen dependent Mother Smoker Oxygen dependent Social History household members: spouse Smoking Status: Never smoker alcohol intake: current substance use type: does not use Smoking Status: Never smoker alcohol intake frequency: 0-2 drinks per day Substance Use Type: does not use Exam Narrative Exam Narrative: GENERAL: [65 year old patient appears stated age. Well-developed patient, in mild distress. HEAD: Atraumatic. Normocephalic. EYES: Pupils equal round and reactive. Extraocular motions intact. No scleral icterus. No injection or drainage. ENT: Nose without bleeding, purulent drainage. Throat without erythema, tonsillar hypertrophy or exudate. Airway patent. NECK: Trachea midline. Non tender CARDIOVASCULAR: Regular rate and rhythm without murmurs, gallops, or rubs. RESPIRATORY: Clear to auscultation. Breath sounds equal bilaterally. No wheezes, rales, or rhonchi. GASTROINTESTINAL: Abdomen soft, tender in the right lower quadrant with minimal localized peritonitis nondistended. EXTREMITIES: No edema or joint tenderness. BACK: Nontender without deformity or crepitance. No flank tenderness. NEURO: AOx3. SKIN: No rash or erythema of visible areas Initial Vital Signs Initial Vital Signs: Vital Signs Temperature 97.8 F 05/31/21 13:13 Pulse Rate 67 05/31/21 13:13 Respiratory Rate 18 05/31/21 13:13 Blood Pressure 146/94 H 05/31/21 13:13 Pulse Oximetry 99 05/31/21 13:13 Course Orders Ordered: ED Orders 05/31/21 13:18 EKG-12 Lead Stat 05/31/21 13:36 Complete Blood Count AUTO DIFF Stat Comprehensive Metabolic Panel Stat Lipase Stat 05/31/21 15:10 CT abdomen pelvis w con Stat Vital Signs Vital signs: Vital Signs - 8 hr 05/31/21 13:13 05/31/21 13:51 05/31/21 14:00 Temperature 97.8 F Pulse Rate 67 57 L 56 L Respiratory Rate 18 Blood Pressure 146/94 H Pulse Oximetry 99 98 98 05/31/21 14:16 05/31/21 14:30 05/31/21 15:00 Temperature Pulse Rate 66 53 L 51 L Respiratory Rate Blood Pressure 115/79 Pulse Oximetry 97 98 99 MDM - Abdominal Pain Lab Data Result diagrams: 05/31/21 13:36 05/31/21 13:36 Labs: Lab Results 05/31/21 05/31/21 Range/Units 13:36 13:36 WBC 6.0 (4.5-11.0) X10^3/uL RBC 4.97 (4.5-5.9) X10^6/uL Hgb 15.9 (13.5-17.5) g/dL Hct 45.4 (41-53) % MCV 91.4 (80-100) fL MCH 32.0 (26-34) PG MCHC 35.0 (30-36) % RDW 12.6 (11.6-14.8) % Plt Count 284 (150-400) X10^3/uL Neut % (Auto) 68.2 (50-75) % Lymph % (Auto) 22.3 L (25-40) % Becker % (Auto) 7.7 (3-14) % Eos % (Auto) 1.1 L (2-4) % Baso % (Auto) 0.7 (0-2) % Neut # (Auto) 4100 (1170-8944) /uL Lymph # (Auto) 1300 (5517-0105) /uL Becker # (Auto) 500 (0-900) /uL Eos # (Auto) 100 (0-450) /uL Baso # (Auto) 0 (0-100) /uL Sodium 141 (137-145) mmol/L Potassium 4.0 (3.4-5.1) mmol/L Chloride 103 (98-107) mmol/L Carbon Dioxide 32 (22-32) mmol/L BUN 13 (9-20) mg/dL Creatinine 0.97 (0.66-1.25) mg/dL Estimated GFR > 60.0 (>60) mL/min BUN/Creatinine Ratio 13.4 (6-22) Glucose 83 (80-110) mg/dL Calcium 9.8 (8.4-10.2) mg/dL Total Bilirubin 1.2 (0.2-1.3) mg/dL AST 39 (17-59) IU/L ALT 29 (<50) IU/L Alkaline Phosphatase 59 (38-126) U/L Total Protein 7.8 (6.3-8.2) g/dL Albumin 4.7 (3.5-5.0) g/dL Globulin 3.1 (1.7-4.1) g/dL Albumin/Globulin Ratio 1.5 (1.0-2.8) Lipase 38 (23-300) U/L Point of care testing: Urine Dip Bedside Urine Glucose Negative Bedside Urine Bilirubin - Negative Bedside Urine Ketone - Negative Urine Specific [place] 1.010 Bedside Urine Occult Blood - Negative Bedside Urine pH 6.0 Bedside Urine Protein - Negative Bedside Urine Urobilinogen - Negative Bedside Urine Nitrite - Negative Bedside Urine Leukocytes - Negative Esterase Imaging Data CT scan - abdomen/pelvis: Radiologist's Impression: [place] [address] CT Scan Report Signed Patient: Valentín Cordero MR#: [id number] : 1955 Acct:[id number] Age/Sex: 65 / M Date of Service: 05/31/21 Loc: ED Accession Number: [id number] ?? Procedure: CT abdomen pelvis w con Ordering Provider: Morro Holden D.O. PROCEDURE:? CT ABDOMEN PELVIS W CON ? INDICATIONS:? severe RLQ pain, recent appy, failed outpatient ABX ? TECHNIQUE:? After the administration of intravenous contrast, axial sections acquired from the lung bases to the pubic symphysis.? Coronal and sagittal reformats were performed.? For radiation dose reduction, the following was used:? automated exposure control, adjustment of mA and/or kV according to patient size.? ? COMPARISON:? [facility], CT, CT ABDOMEN PELVIS W CON, 03/15/2021, 10:34. ? FINDINGS:? Image quality:? Excellent.? ? Lung bases:? Unremarkable. Heart:? No significant findings. ? ABDOMEN: Liver:? Unremarkable.? ? Gallbladder:? Unremarkable.? ? Biliary ducts:? Unremarkable.? ? Pancreas:? Unremarkable.? ? Spleen:? Unremarkable.? ? Adrenal Glands:? Unremarkable.? ? Kidneys and Ureters:? Unremarkable.? ? ? Stomach and Bowel:? Stomach, small bowel loops, and colon are unremarkable.? Appendix not seen.? No evidence of appendicitis. Peritoneum:? No abnormal intraperitoneal fluid.? No free air.? ? Ventral Wall: ? No hernias.? Abdominal Nodes:? No retroperitoneal or mesenteric adenopathy by size criteria.? Vessels:? Aorta and inferior vena cava are normal in size.? ? PELVIS: Pelvic Organs:? Unremarkable.? ? Bladder:? Unremarkable.? ? Pelvic Nodes: No enlarged lymph nodes.? Miscellaneous: No hernias are seen. ? ? ? Bones:? Unremarkable.? IMPRESSION:? 1. No acute process.? No explanation for right lower quadrant pain. ? ? Dictated by: Ramírez Ma M.D. on 05/31/2021 at 14:33 ? ? Approved by: Ramírez Ma M.D. on 05/31/2021 at 14:35 ? MDM Narrative Medical decision making narrative: Patient presents with right lower quadrant pain which feels vaguely similar to prior episodes of diverticulitis. His history, physical, labs and imaging are very reassuring. There is no evidence of diverticulitis, surgical complication from his appendicitis, kidney stone or other diagnosis which would require specific intervention. His pain likely started after throwing heavy object wh ich raises the question of the beginning of a rent, irritation of scar tissue or the like. He has been given return precautions and questions have been answered to his apparent satisfaction Discharge Plan Departure Patient Disposition: Home Clinical Impression: Abdominal pain, acute, right lower quadrant Activity Restrictions/Additional Instructions: *You have been diagnosed with [acute right lower quadrant pain with very reassuring history, physical exam, labs and imaging. There is no radiographic evidence to suggest any surgical issue or other diagnosis which would require a specific intervention. *What to do: *Please continue to take your regular medications as directed. [ ] New medication prescriptions sent to your pharmacy: [ ] [ ] New medication written as a paper prescription [ x] No new medications given *Please follow up with [facility], call for an appointment. Let them know you were seen in the Emergency Department and that we ask that you be seen in follow up. We will electronically transmit a record of today's note if your PCP is in our system *If you do not have a primary care provider please contact the [facility] Hank vences line at [phone]. They will ask some questions about your medical history and help get you set up with a doctor in the community. *Return to Emergency Department if you should have any new, worsening or concerning symptoms, such as [fever greater than 101 F, shaking chills, worsening pain, persistent vomiting or other bothersome symptoms] Prescriptions: No Action ciprofloxacin HCl [Cipro] 500 mg tablet 500 mg PO BID 7 Days Qty: 14 0RF metronidazole 500 mg tablet 500 mg PO Q8H 7 Days Qty: 21 0RF lisinopril 20 mg tablet 20 mg PO QDAY Qty: 90 3RF Referrals: Silvestre Alex MD [Physician] - Vaishali Vela MD [Primary Care Provider] -
== END 2021-05-31 16:24 | disposition home or self-care (01) ==
PROVIDERS: Emergency Provider Emergency Medicine; PCP Family Medicine
DX: R10.31 Right lower quadrant pain (principal)
CPT/HCPCS: 36415; 74177; 80053; 81003; 83690; 85025; 93005; 93010; 99284

== ENCOUNTER → 2022-03-07 11:05 | Outpatient (CLI) | payer OTHER, SELFPAY ==
[2021-03-15 13:54] VITALS: BMI 27.3
[2022-03-07 12:41] LABS: Alanine Aminotransferase 25 IU/L (<50); Albumin 4.3 g/dL (3.5-5.0); Albumin Globulin Ratio 1.3 (1.0-2.8); Alkaline Phosphatase 65 U/L (38-126); Aspartate Aminotransferase 46 IU/L (17-59); BUN Creatinine Ratio 23.8 (6-22); Bilirubin Total 1.3 mg/dL (0.2-1.3); Blood Urea Nitrogen 20 mg/dL (9-20); Calcium 9.3 mg/dL (8.4-10.2); Carbon Dioxide 27 mmol/L (22-32); Chloride 104 mmol/L (98-107); Cholesterol 188 mg/dL (140-199); Estimated Glomerular Filt Rate > 60 mL/min (>60); Globulin 3.2 g/dL (1.7-4.1); Glucose 92 mg/dL (80-110); HDL Cholesterol 67 mg/dL (40-60); HEMOLYSIS < 15 (0-50); LDL Cholesterol Calculated 112 mg/dL (<100); Potassium 3.9 mmol/L (3.4-5.1); Sodium 140 mmol/L (137-145); Total Protein 7.5 g/dL (6.3-8.2); Triglycerides 45 mg/dL (35-150)
[2022-03-07 13:44] LABS: Creatinine Urine Random 59.1 mg/dL
[2022-03-07 13:45] LABS: Microalbumi Creatinin Ratio Ur 15.2 ug/mg CR (<30); Microalbumin Urine Random 0.9 mg/dL (0-1.6)
[2022-03-09 20:43] LABS: Prostate Specific Antigen Scrn 1.01 ng/mL (0.1-4.0)
== END ==
PROVIDERS: PCP Family Medicine; Referring Provider Family Medicine; Visit Provider Family Medicine
DX: I10 Essential (primary) hypertension (principal); Z12.5 Encounter for screening for malignant neoplasm of prostate
CPT/HCPCS: 36415; 80053; 80061; 82043; 82570; G0103

== ENCOUNTER → 2022-07-21 08:02 | Outpatient (CLI) | payer OTHER, SELFPAY ==
[2021-03-15 13:54] VITALS: BMI 27.3
--- NOTE | 2022-07-21 08:03 | DI.RAD.S_ITS ---
PROCEDURE: XR LUMBAR SPINE MIN 4V INDICATIONS: BACK PAIN TECHNIQUE: 5 views of the lumbar spine were acquired, including bilateral oblique views. COMPARISON: [facility], , XR LUMBAR SPINE 2-3V, 04/22/2018, 15:55. FINDINGS: Bones: 5 nonrib-bearing vertebrae are present. There is trace retrolisthesis of L5 on S1. Moderate disc and foraminal narrowing are noted at L5-S1. Moderate foraminal narrowing is present L4-5. No vertebral body compression fractures. No suspicious bony lesions. Soft tissues: Overlying bowel gas pattern is normal. No suspicious soft tissue calcifications. Oblique images: No pars defects. IMPRESSION: Degenerative changes most severe at L5-S1, minimally progressive. Dictated by: Arlette Dhillon M.D. on 07/21/2022 at 8:32 Approved by: Arlette Dhillon M.D. on 07/21/2022 at 8:33
== END ==
PROVIDERS: PCP Family Medicine; Referring Provider Physical Medicine & Rehabilitation; Visit Provider Physical Medicine & Rehabilitation
DX: M47.27 Other spondylosis with radiculopathy, lumbosacral region (principal); M51.16 Intervertebral disc disorders with radiculopathy, lumbar region
CPT/HCPCS: 72110

== ENCOUNTER → 2023-03-12 07:38 | Outpatient (CLI) | payer MEDICARE, OTHER, SELFPAY ==
[2021-03-15 13:54] VITALS: BMI 27.3
[2023-03-12 08:44] LABS: Alanine Aminotransferase 22 IU/L (<50); Albumin 4.1 g/dL (3.5-5.0); Albumin Globulin Ratio 1.3 (1.0-2.8); Alkaline Phosphatase 61 U/L (38-126); Aspartate Aminotransferase 29 IU/L (17-59); Bilirubin Total 1.5 mg/dL (0.2-1.3); Blood Urea Nitrogen 20 mg/dL (9-20); Calcium 9.5 mg/dL (8.4-10.2); Carbon Dioxide 30 mmol/L (22-32); Chloride 103 mmol/L (98-107); Cholesterol 210 mg/dL (140-199); Estimated Glomerular Filt Rate > 60 mL/min (>60); Globulin 3.1 g/dL (1.7-4.1); Glucose 93 mg/dL (80-110); HDL Cholesterol 65 mg/dL (40-60); HEMOLYSIS < 15 (0-50); LDL Cholesterol Calculated 121 mg/dL (<100); Potassium 4.3 mmol/L (3.4-5.1); Sodium 137 mmol/L (137-145); Total Protein 7.2 g/dL (6.3-8.2); Triglycerides 120 mg/dL (35-150)
[2023-03-12 08:56] LABS: Hemoglobin A1C% w Est Avg Glu 4.8 % (4.0-6.0)
[2023-03-12 09:02] LABS: Vitamin D 25 Hydroxy (D3) 24.6 ng/mL (30.0-100.0)
[2023-03-12 09:14] LABS: Prostate Specific Antigen 1.07 ng/mL (0.10-4.00)
[2023-03-12 09:35] LABS: Creatinine Urine Random 141.5 mg/dL
[2023-03-12 09:40] LABS: Microalbumi Creatinin Ratio Ur 8.4 ug/mg CR (<30); Microalbumin Urine Random 1.2 mg/dL (0-1.6)
[2023-03-12 16:18] LABS: HIV 1 & 2 Ab/Ag 4th Gen Combo NEGATIVE (NEGATIVE); Hep C Virus Ab w/Reflex Quant NEGATIVE s/c (NEGATIVE)
== END ==
PROVIDERS: PCP Family Medicine; Referring Provider Family Medicine; Visit Provider Family Medicine
DX: Z00.00 Encounter for general adult medical examination without abnormal findings (principal); I10 Essential (primary) hypertension; Z11.59 Encounter for screening for other viral diseases; R53.83 Other fatigue; Z12.5 Encounter for screening for malignant neoplasm of prostate; E78.5 Hyperlipidemia, unspecified; Z13.1 Encounter for screening for diabetes mellitus
CPT/HCPCS: 36415; 80053; 80061; 82043; 82306; 82570; 83036; 84153; 86803; 87389; G0103

== ENCOUNTER → 2023-09-21 11:16 | Outpatient (CLI) | payer MEDICARE, OTHER, SELFPAY ==
[2021-03-15 13:54] VITALS: BMI 27.3
--- NOTE | 2023-09-21 11:17 | DI.RAD.S_ITS ---
PROCEDURE: XR RIBS LT MIN 3V W CXR1V INDICATIONS: pain on L posterior ribs TECHNIQUE: 3 views of the ribs were acquired, along with a single view chest. COMPARISON: None. FINDINGS: Surgical changes and devices: None. Bones and chest wall: No fractures or dislocations. No suspicious bony lesions. Overlying soft tissues appear unremarkable. Lungs and pleura: No pleural effusions or pneumothorax. Lungs appear clear. Mediastinum: Mediastinal contours appear normal. Heart size is normal. IMPRESSION: No displaced rib fracture or pneumothorax. Dictated by: Gianluca Nicole M.D. on 09/21/2023 at 12:13 Approved by: Gianluca Nicole M.D. on 09/21/2023 at 12:15
== END ==
PROVIDERS: PCP Family Medicine; Referring Provider Physician Assistant; Visit Provider Physician Assistant
DX: R07.81 Pleurodynia (principal)
CPT/HCPCS: 71101

== ENCOUNTER 2024-04-15 17:31 | Emergency (ER) | payer MEDICARE, OTHER, SELFPAY ==
[2021-03-15 13:54] VITALS: BMI 27.3
[2024-04-15] VITALS (12 sets, daily range): BP systolic 131–147; BP diastolic 83–102; PULSE 45–79; RESP 99; TEMP 36.6; O2SAT 95–99; BMI 27.0
--- NOTE | 2024-04-15 17:44 | EKG_ITS ---
[address] [address] [place] [address] Test Date: 2024-04-15 Pat Name: Valentín Cordero Department: [facility] Room: Gender: Male Production Consultant: DARRELL : 1955 Requested By: Order Number: [id number] Reading MD: Brennen Benitez Measurements Intervals [place] Rate: 66 P: 11 IN: 136 QRS: -66 QRSD: 108 T: 66 QT: 408 QTc: 427 Interpretive Statements Sinus rhythm with occasional premature ventricular complexes Left anterior fascicular block Nonspecific ST abnormality Electronically Signed On 04-19-2024 18:49:25 PST by Brennen Benitez
[2024-04-15 17:56] LABS: Alanine Aminotransferase 21 IU/L (<50); Albumin 4.5 g/dL (3.5-5.0); Albumin Globulin Ratio 1.4 (1.0-2.8); Alkaline Phosphatase 77 U/L (38-126); Aspartate Aminotransferase 28 IU/L (17-59); BUN Creatinine Ratio 14.6 (6-22); Bilirubin Total 1.3 mg/dL (0.2-1.3); Blood Urea Nitrogen 14 mg/dL (9-20); Calcium 9.8 mg/dL (8.4-10.2); Carbon Dioxide 30 mmol/L (22-32); Chloride 102 mmol/L (98-107); Estimated Glomerular Filt Rate > 60 mL/min (>60); Globulin 3.3 g/dL (1.7-4.1); Glucose 96 mg/dL (80-110); HEMOLYSIS < 15 (0-50); Lipase 35 U/L (23-300); Potassium 3.9 mmol/L (3.4-5.1); Sodium 139 mmol/L (137-145); Total Protein 7.8 g/dL (6.3-8.2)
[2024-04-15 18:00] LABS: Add Manual Diff / Slide Review NO; Basophils Absolute Auto 100 /uL (0-100); Basophils Percent Auto 0.9 % (0-2); Eosinophils Absolute Auto 200 /uL (0-450); Eosinophils Percent Auto 2.6 % (2-4); Hemoglobin 16.6 g/dL (13.5-17.5); Lymphocytes Absolute Auto 1700 /uL (1100-4500); Lymphocytes Percent Auto 24.2 % (25-40); Mean Corpuscular HGB Conc 34.7 % (30-36); Mean Corpuscular Hemoglobin 32.5 PG (26-34); Mean Corpuscular Volume 93.6 fL (80-100); Monocytes Absolute Auto 600 /uL (0-900); Monocytes Percent Auto 8.6 % (3-14); Neutrophils Absolute Auto 4500 /uL (1500-7000); Neutrophils Percent Auto 63.7 % (50-75); Platelet Count 298 X10^3/uL (150-400); Red Blood Cell Count 5.12 X10^6/uL (4.5-5.9); Red Cell Distribution Width 12.3 % (11.6-14.8); White Blood Cell Count 7.1 X10^3/uL (4.5-11.0)
--- NOTE | 2024-04-15 18:19 | DI.CT.S_ITS ---
PROCEDURE: CT ABDOMEN PELVIS W CON INDICATIONS: RLQ Rflank pain TECHNIQUE: After the administration of intravenous contrast, axial sections acquired from the lung bases to the pubic symphysis. Coronal and sagittal reformats were performed. For radiation dose reduction, the following was used: automated exposure control, adjustment of mA and/or kV according to patient size. COMPARISON: [facility], CT, CT ABDOMEN PELVIS W CON, 05/31/2021, 15:26. FINDINGS: Image quality: Diagnostic. Lower Chest: Mild bibasilar dependent atelectasis is seen posteriorly. Heart size is normal, no pericardial effusion. ABDOMEN: Liver: No solid mass. Gallbladder: No radiopaque gallstones or wall thickening. Biliary ducts: No biliary dilation. Pancreas: No ductal dilation. Spleen: Size is within normal limits. Adrenal Glands: No adrenal nodules. Kidneys and Ureters: No hydronephrosis. No solid mass. Simple appearing left renal cortical cyst is seen measures up to 5.1 x 4.6 cm in size. No complex renal cystic lesion which requires follow up. Stomach and Bowel: There is no evidence of bowel obstruction. No gastric or small bowel wall thickening. Moderate fecal stasis in the colon is seen. Appendix is not definitively seen. Focal inflammatory changes are noted in right lower quadrant to suggest acute appendicitis. There is suggestion of diffuse colonic wall thickening particularly involving transverse colon and descending colon with mild pericolonic fat stranding. No abscess collection. Peritoneum: No abnormal intraperitoneal fluid. No free air. Ventral Wall: No significant ventral hernia. Abdominal Nodes: No retroperitoneal or mesenteric adenopathy by size criteria. Vessels: Aorta and inferior vena cava are normal in size. PELVIS: Pelvic Organs: Unremarkable. Bladder: No bladder wall thickening, accounting for underdistention. Pelvic Nodes: No enlarged lymph nodes. Miscellaneous: No inguinal hernias are seen. Bones: No aggressive osseous abnormality. IMPRESSION: 1. Finding is concerning for infectious inflammatory colitis predominantly involving transverse colon and descending colon. Sigmoid diverticulosis without CT evidence of diverticulitis. 2. Appendix is not definitively seen. No secondary CT signs of acute appendicitis in right lower quadrant. 3. No obstructing renal stones or hydronephrosis. Dictated by: Gurvinder Dejesus M.D. on 04/15/2024 at 18:58 Approved by: Gurvinder Dejesus M.D. on 04/15/2024 at 19:01
--- NOTE | 2024-04-15 18:23 | ED_ITS ---
HPI - Abdominal Pain General Chief Complaint: Abdominal Pain Stated Complaint: abd px, hx diverticulitis Time Seen by Provider: 04/15/24 18:19 Source: patient Mode of arrival: Family Vehicle History of Present Illness HPI narrative: 68-year-old male with history of remote appendectomy, history of diverticulitis, now with 1 week duration of right lower back pain and right lower quadrant abdominal pain, no trauma or injury or new activities. No fevers or chills. No dysuria or frequency of urination, no dark or bloody appearing urine. Having normal bowel movements, without black or red color. No nausea or vomiting. Pain is sometimes worse with deep inspiration and movements, better with shallow respirations and being still. No significant improvement with [id number] ibuprofen. Denies sensation fevers or chills. Related Data Home Medications Medication Instructions Recorded Confirmed naproxen sodium 220 mg capsule 220 mg PO BID PRN 07/21/22 09/21/23 (Aleve) cholecalciferol (vitamin D3) 50 50 mcg PO DAILY 09/21/23 09/21/23 mcg (2,000 unit) capsule Previous Rx's Medication Instructions Recorded lisinopril 20 mg tablet 20 mg PO DAILY #90 tabs 02/23/24 ciprofloxacin HCl 500 mg tablet 500 mg PO BID 10 days #20 tabs 04/15/24 hydrocodone 5 mg-acetaminophen 325 1 tab PO Q6H PRN pain #14 tabs 04/15/24 mg tablet metronidazole 500 mg tablet 500 mg PO TID #30 tabs 04/15/24 Allergies Allergy/AdvReac Type Severity Reaction Status Date / Time No Known Drug Allergies Allergy Verified 09/21/23 10:24 Review of Systems Review of Systems Narrative: See HPI Patient History Medical History (Updated 04/15/24 @ 19:56 by Nelson Khalil MD) Degenerative joint disease of knee Facet arthropathy, lumbar Eczema Diverticular disease Hypertension Surgical History History of appendectomy H/O sinus surgery Status post arthroscopy of right shoulder History of arthroscopy of both knees (2000) History of shoulder surgery (1994) Family History Father Lung disease Smoker Oxygen dependent Mother Smoker Oxygen dependent Social History (Reviewed 12/17/21 @ 15:16 by MANISH Mancini marital status: number of children: 2 household members: spouse lives independently: Yes occupational status: other (retired) current occupational exposures/hazards: No leisure activities: exercise Smoking Status: Never smoker Smokeless tobacco user: chewing tobacco (quit 30 years ago) second hand exposure: Yes (in childhood) alcohol intake: current (10-14 servings per week) substance use type: does not use during the past year weight has: remained stable well-balanced diet: daily or most days daily servings fruits/ve-4 caffeine: Yes Type(s) of exercise: walking frequency: daily Smoking Status: Never smoker alcohol intake frequency: 0-2 drinks per day Substance Use Type: does not use Exam Narrative Exam Narrative: GENERAL: Well-developed patient, in mild distress. HEAD: Atraumatic. Normocephalic. EYES: Pupils equal round and reactive. Extraocular motions intact. No scleral icterus. No injection or drainage. ENT: Nose without bleeding, purulent drainage. Throat without erythema, tonsillar hypertrophy or exudate. Airway patent. NECK: Trachea midline. Non tender CARDIOVASCULAR: Regular rate and rhythm without murmurs, gallops, or rubs. RESPIRATORY: Clear to auscultation. Breath sounds equal bilaterally. No wheezes, rales, or rhonchi. GASTROINTESTINAL: Abdomen soft, mild tenderness right lower quadrant, no guarding or rebound tenderness, no abnormal pulsatile masses. I could not hear any bruit. EXTREMITIES: No edema or joint tenderness. BACK: Nontender without deformity or crepitance. No flank tenderness. NEURO: AOx3. Motor functions grossly nonfocal SKIN: No rash or erythema of visible areas Initial Vital Signs Initial Vital Signs: Vital Signs Temperature 97.9 F 04/15/24 17:34 Pulse Rate 56 L 04/15/24 17:34 Respiratory Rate 99 H 04/15/24 17:34 Blood Pressure 145/102 H 04/15/24 17:34 Pulse Oximetry 99 04/15/24 17:34 Oxygen Delivery Method Room Air 04/15/24 17:34 Course Orders Ordered: ED Orders 04/15/24 17:39 Complete Blood Count AUTO DIFF Stat Comprehensive Metabolic Panel Stat Lipase Stat 04/15/24 17:44 EKG-12 Lead Stat 04/15/24 18:19 CT abdomen pelvis w con Stat Ondansetron HCl (Ondansetron 4 Mg/2 Ml Inj) 4 mg IV NOW PRN PRN Reason: Nausea And Vomiting Ondansetron HCl (Ondansetron 4 Mg Odt) 4 mg PO NOW PRN PRN Reason: Nausea And Vomiting Discontinued Medications Hydrocodone Bitart/Acetaminophen (Hydrocodone/Acet 5/325 Prepack) 1 bottle MISC DIRECTED ONE Stop: 04/15/24 20:02 Ciprofloxacin (Ciprofloxacin 250 Mg Tablet) 500 mg PO NOW ONE Stop: 04/15/24 19:53 Last Admin: 04/15/24 19:59 Dose: 500 mg Documented By: FLORECITA Metronidazole (Metronidazole 500 Mg Tablet) 500 mg PO NOW ONE Stop: 04/15/24 19:53 Last Admin: 04/15/24 19:59 Dose: 500 mg Documented By: FLORECITA Vital Signs Vital signs: Vital Signs - 8 hr 04/15/24 17:34 04/15/24 17:36 04/15/24 17:36 Temperature 97.9 F Pulse Rate 56 L 49 L Respiratory Rate 99 H Blood Pressure 145/102 H 145/102 H Pulse Oximetry 99 98 Oxygen Delivery Method Room Air 04/15/24 17:55 04/15/24 17:55 04/15/24 18:00 Temperature Pulse Rate 68 46 L Respiratory Rate Blood Pressure 131/83 Pulse Oximetry 97 97 Oxygen Delivery Method 04/15/24 18:22 04/15/24 18:22 04/15/24 18:38 Temperature Pulse Rate 57 L 45 L Respiratory Rate Blood Pressure 142/91 H Pulse Oximetry 95 97 Oxygen Delivery Method 04/15/24 19:00 04/15/24 19:12 04/15/24 19:12 Temperature Pulse Rate 79 55 L Respiratory Rate Blood Pressure 147/90 H Pulse Oximetry 98 98 Oxygen Delivery Method 04/15/24 19:30 Temperature Pulse Rate 46 L Respiratory Rate Blood Pressure Pulse Oximetry 97 Oxygen Delivery Method Room Air MDM - Abdominal Pain Lab Data Attestation: I reviewed the patient's lab results. Lab results narrative: White blood cell count 7100, hemoglobin 16.6, platelets adequate. Basic metabolic panel normal. Liver functions normal, lipase normal. Urine dip negative. 04/15/24 17:39 04/15/24 17:39 Labs: Lab Results 04/15/24 Range/Units 17:39 WBC 7.1 (4.5-11.0) X10^3/uL RBC 5.12 (4.5-5.9) X10^6/uL Hgb 16.6 (13.5-17.5) g/dL Hct 48.0 (41-53) % MCV 93.6 (80-100) fL MCH 32.5 (26-34) PG MCHC 34.7 (30-36) % RDW 12.3 (11.6-14.8) % Plt Count 298 (150-400) X10^3/uL Neut % (Auto) 63.7 (50-75) % Lymph % (Auto) 24.2 L (25-40) % [place] % (Auto) 8.6 (3-14) % Eos % (Auto) 2.6 (2-4) % Baso % (Auto) 0.9 (0-2) % Neut # (Auto) 4500 (3788-1975) /uL Lymph # (Auto) 1700 (3409-3697) /uL [place] # (Auto) 600 (0-900) /uL Eos # (Auto) 200 (0-450) /uL Baso # (Auto) 100 (0-100) /uL Sodium 139 (137-145) mmol/L Potassium 3.9 (3.4-5.1) mmol/L Chloride 102 (98-107) mmol/L Carbon Dioxide 30 (22-32) mmol/L BUN 14 (9-20) mg/dL Creatinine 0.96 (0.66-1.25) mg/dL Estimated GFR > 60 (>60) mL/min BUN/Creatinine Ratio 14.6 (6-22) Glucose 96 (80-110) mg/dL Calcium 9.8 (8.4-10.2) mg/dL Total Bilirubin 1.3 (0.2-1.3) mg/dL AST 28 (17-59) IU/L ALT 21 (<50) IU/L Alkaline Phosphatase 77 (38-126) U/L Total Protein 7.8 (6.3-8.2) g/dL Albumin 4.5 (3.5-5.0) g/dL Globulin 3.3 (1.7-4.1) g/dL Albumin/Globulin Ratio 1.4 (1.0-2.8) Lipase 35 (23-300) U/L Point of care testing: Urine Dip Bedside Urine Glucose Negative Bedside Urine Bilirubin - Negative Bedside Urine Ketone - Negative Urine Specific [place] 1.005 Bedside Urine Occult Blood - Negative Bedside Urine pH 6.0 Bedside Urine Protein - Negative Bedside Urine Nitrite - Negative Bedside Urine Leukocytes - Negative Esterase ECG Data Attestation: I personally reviewed and interpreted this ECG as follows: Interpretation: Normal sinus rhythm with rate 66. Occasional PVC. SC 136, QRS 108, QTC 427. MDM Narrative Medical decision making narrative: 68-year-old male with remote appendectomy history, still has gallbladder, history of diverticulitis, with one-week duration right lower abdominal discomfort with right-sided back pain, somewhat pleuritic component worsening, no response to [id number] medications, minimal tenderness but some to right lower quadrant, no ventral hernias obvious. Afebrile, sirs screen negative. Screening labs unremarkable. Renal function adequate. CT abdomen and pelvis imaging requested. Patient declines pain medications at this time CT abdomen and pelvis shows diverticulosis without diverticulitis. Also shows acute colitis changes transverse and ascending colon, without obstruction or perforation or abscess complications. See radiology report. Printed copy of the report given to the patient with discussion of results We will start oral antibiotics now, ciprofloxacin and metronidazole first doses given orally, further antibiotics Rx sent to his pharmacy. He now would like some pain medications. Oral hydrocodone, home pack hydrocodone, further hydrocodone tablets Rx sent to his pharmacy. Clinical recheck advised with his regular doctor early next week. Return precautions discussed. Home with family. Discharge Plan Departure Patient Disposition: Home Clinical Impression: Abdominal pain, Colitis Instructions: DI for Colitis Activity Restrictions/Additional Instructions: Abdominal discomfort, history of diverticulitis, some tenderness on examination, no fever, unremarkable vitals. CT showed acute colitis changes in the transverse and descending colon, without mention of any complication such as obstruction or abscess or perforation at this time. First doses of oral antibiotics ciprofloxacin and metronidazole/Flagyl given, prescription for further antibiotic course sent to your pharmacy. Please note Flagyl/metronidazole can interact with alcohol and cause vomiting, try to avoid alcohol while taking this antibiotic. This interaction should go away once the course of antibiotics is completed. Take all the antibiotics as directed. Recheck symptoms early next week with your regular doctor. Return to this/nearest emergency department for any change worsening symptoms or any concerns prior Prescriptions: New ciprofloxacin HCl 500 mg tablet 500 mg PO BID 10 Days Qty: 20 0RF metronidazole 500 mg tablet 500 mg PO TID Qty: 30 0RF hydrocodone-acetaminophen 5-325 mg tablet 1 tab PO Q6H PRN (Reason: pain) Qty: 14 0RF No Action cholecalciferol (vitamin D3) 50 mcg (2,000 unit) capsule 50 mcg PO DAILY lisinopril 20 mg tablet 20 mg PO DAILY Qty: 90 3RF naproxen sodium [Aleve] 220 mg capsule 220 mg PO BID PRN Referrals: Ramo Pendleton MD [Primary Care Provider] - Stand Alone Forms: Patient Portal/API/Survey
[2024-04-15] MEDS: metroNIDAZOLE 500 MG TABLET PO (19:59)
[2024-04-15] MEDS: CIPROFLOXACIN 250 MG TABLET 500 MG PO (19:59)
[2024-04-15] MEDS: HYDROCODONE/ACET 5/325 PREPACK 1 BOTTLE MISC (20:10)
== END 2024-04-15 20:18 | disposition home or self-care (01) ==
PROVIDERS: Emergency Medicine; Emergency Provider Emergency Medicine; PCP Family Medicine
DX: R10.31 Right lower quadrant pain (principal); K52.9 Noninfective gastroenteritis and colitis, unspecified; M54.50 Low back pain, unspecified; I44.7 Left bundle-branch block, unspecified
CPT/HCPCS: 36415; 74177; 80053; 81003; 83690; 85025; 93005; 99284; Q9967

== ENCOUNTER 2024-09-29 09:12 | Emergency (ER) | payer MEDICARE, OTHER, SELFPAY ==
[2021-03-15 13:54] VITALS: BMI 27.3
[2024-09-29] VITALS (13 sets, daily range): BP systolic 125–157; BP diastolic 73–88; PULSE 33–65; RESP 11–29; TEMP 36.6; O2SAT 97–100; BMI 26.6
--- NOTE | 2024-09-29 09:18 | DI.RAD.S_ITS ---
PROCEDURE: XR CHEST 1V INDICATIONS: chest pain TECHNIQUE: One view of the chest was acquired. COMPARISON: None. FINDINGS: Surgical changes and devices: None. Lungs and pleura: Lungs are clear considering reduced inspiratory volume. No pleural effusions or pneumothorax. Mediastinum: Mediastinal contours appear normal. Heart size is normal. Bones and chest wall: No suspicious bony lesions. Overlying soft tissues appear unremarkable. IMPRESSION: No acute cardiopulmonary abnormality is seen. Mildly reduced inspiratory volume. Dictated by: Alin Jones M.D. on 09/29/2024 at 9:47 Approved by: Alin Jones M.D. on 09/29/2024 at 9:48
--- NOTE | 2024-09-29 09:18 | EKG_ITS ---
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
--- NOTE | 2024-09-29 09:19 | ED.CHESTPAIN ---
HPI - Chest Pain General Chief Complaint: Chest Pain Stated Complaint: Chest pain Time Seen by Provider: 09/29/24 09:18 History of Present Illness HPI narrative: 78-year-old male history of hypertension, PVCs, comes into the ED from home for evaluation of left-sided chest pain, states that it started a little bit after he was lifting some boxes. States that it was nonexertional. States that he follows with Dr. Bautista for Cardiology, however he states that he has not seen them in a while. Patient denies any other symptoms such as headache visual disturbances shortness breath fever chills nausea vomiting abdominal pain or any other GI/ symptoms time. Related Data Home Medications Medication Instructions Recorded Confirmed naproxen sodium 220 mg capsule 220 mg PO BID PRN 07/21/22 05/04/24 (Aleve) cholecalciferol (vitamin D3) 50 50 mcg PO DAILY 09/21/23 05/04/24 mcg (2,000 unit) capsule Previous Rx's Medication Instructions Recorded lisinopril 20 mg tablet 20 mg PO DAILY #90 tabs 02/23/24 tadalafil (pulm. hypertension) 20 10 mg (1/2 x 20 mg) PO DAILY PRN 05/04/24 mg tablet (pulmonary hypertension) sexual activity #30 tabs Allergies Allergy/AdvReac Type Severity Reaction Status Date / Time No Known Drug Allergies Allergy Verified 05/04/24 11:23 Review of Systems Review of Systems Narrative: General: Denies fever, chills, weight loss HEENT: Denies headache, eye drainage, eye irritation, head trauma, sore throat, voice change Cardiovascular: Positive chest pain, denies palpitations, tachycardia Respiratory: Denies any shortness of breath, cough, wheeze, stridor GI/: Denies any abdominal pain, nausea, vomiting, diarrhea, bright red blood per rectum, melanotic stools, urinary frequency, urinary retention, dysuria, hematuria MSK: Denies any joint pain, muscle pains, swelling Skin: Denies any rashes, lesions, discoloration Neuro: Denies any headache, lightheadedness, dizziness, fainting, weakness Psych: Denies SI/HI Patient History Medical History (Updated 09/29/24 @ 12:21 by Brennen Grace DO) Degenerative joint disease of knee Facet arthropathy, lumbar Eczema Diverticular disease Hypertension Surgical History History of appendectomy H/O sinus surgery Status post arthroscopy of right shoulder History of arthroscopy of both knees (2000) History of shoulder surgery (1994) Family History Father Lung disease Smoker Oxygen dependent Mother Smoker Oxygen dependent Social History marital status: number of children: 2 household members: spouse lives independently: Yes occupational status: other (retired) current occupational exposures/hazards: No leisure activities: exercise Smoking Status: Never smoker Smokeless tobacco user: chewing tobacco (quit 30 years ago) second hand exposure: Yes (in childhood) alcohol intake: current (10-14 servings per week) substance use type: does not use during the past year weight has: remained stable well-balanced diet: daily or most days daily servings fruits/ve-4 caffeine: Yes Type(s) of exercise: walking frequency: daily alcohol intake frequency: 0-2 drinks per day Exam Narrative Exam Narrative: General: Cooperative, well-developed, not in acute distress HEENT: Normocephalic, atraumatic, PERRLA, normal sclera, eyelids normal Neck: Active full range of motion, atraumatic Chest: Normal to inspection, negative crepitus, no overlying erythema ecchymosis Respiratory: Normal respiratory effort, not in acute respiratory distress, clear to auscultation bilaterally negative cough, wheeze, tachypnea, rhonchi, rales Cardiology: Regular rate rhythm negative gallop, murmur, rubs GI/: No tenderness to palpation, soft, non rigid, normal to inspection, exam deferred MSK: Full active range of motion in all 4 extremities, atraumatic, no tenderness to palpation of any bony prominences Skin: No rashes or lesions noted Neuro: Alert awake oriented x3, moves all 4 extremities spontaneously, cranial nerves intact, able to answer all questions appropriately follows commands appropriately Psych: Cooperative, negative suicidal or homicidal ideations Initial Vital Signs Initial Vital Signs: Vital Signs Temperature 98 F 09/29/24 09:18 Pulse Rate 62 09/29/24 09:18 Respiratory Rate 20 09/29/24 09:18 Blood Pressure 157/88 H 09/29/24 09:18 Pulse Oximetry 100 09/29/24 09:18 Oxygen Delivery Method Room Air 09/29/24 09:18 Course Orders Ordered: ED Orders 09/29/24 09:18 XR chest 1V Stat EKG-12 Lead Stat 09/29/24 09:22 Complete Blood Count AUTO DIFF Stat Comprehensive Metabolic Panel Stat Lipase Stat MAG [Magnesium] Stat Troponin & CK Cardiac Panel Stat 09/29/24 11:24 Trop I [Troponin I] Stat Discontinued Medications Aspirin (Aspirin 81 Mg Chew Tab) 324 mg PO NOW ONE Stop: 09/29/24 09:19 Last Admin: 09/29/24 09:22 Dose: 324 mg Documented By: JENIFER Vital Signs Vital signs: Vital Signs - 8 hr 09/29/24 09:18 09/29/24 09:18 09/29/24 09:19 Temperature 98 F Pulse Rate 62 33 L 37 L Respiratory Rate 20 29 H Blood Pressure 157/88 H Pulse Oximetry 100 99 100 Oxygen Delivery Method Room Air 09/29/24 09:19 09/29/24 09:30 09/29/24 09:30 Temperature Pulse Rate 60 Respiratory Rate 15 Blood Pressure 157/88 H 135/78 Pulse Oximetry 98 Oxygen Delivery Method 09/29/24 09:47 09/29/24 09:47 09/29/24 10:00 Temperature Pulse Rate 65 50 L Respiratory Rate 20 18 Blood Pressure 153/85 H Pulse Oximetry 99 99 Oxygen Delivery Method 09/29/24 10:00 09/29/24 10:30 09/29/24 10:30 Temperature Pulse Rate 53 L Respiratory Rate 17 Blood Pressure 125/78 126/73 Pulse Oximetry 98 Oxygen Delivery Method 09/29/24 11:00 09/29/24 11:00 Temperature Pulse Rate 51 L Respiratory Rate Blood Pressure 145/79 H Pulse Oximetry 98 Oxygen Delivery Method MDM - Chest Pain Differential Diagnosis Differential diagnosis: Likely atypical chest pain, st elevation myocardial infarction, costochondritis and other (ACS, pneumonia, electrolyte abnormality,) Lab Data 09/29/24 09:22 09/29/24 09:22 Labs: Lab Results 09/29/24 09/29/24 Range/Units 09:22 11:24 WBC 5.9 (4.5-11.0) X10^3/uL RBC 4.73 (4.5-5.9) X10^6/uL Hgb 15.1 (13.5-17.5) g/dL Hct 44.6 (41-53) % MCV 94.3 (80-100) fL MCH 31.9 (26-34) PG MCHC 33.9 (30-36) % RDW 13.5 (11.6-14.8) % Plt Count 262 (150-400) X10^3/uL Neut % (Auto) 64.8 (50-75) % Lymph % (Auto) 24.1 L (25-40) % [place] % (Auto) 9.1 (3-14) % Eos % (Auto) 1.4 L (2-4) % Baso % (Auto) 0.6 (0-2) % Neut # (Auto) 3800 (9697-1997) /uL Lymph # (Auto) 1400 (1938-1681) /uL [place] # (Auto) 500 (0-900) /uL Eos # (Auto) 100 (0-450) /uL Baso # (Auto) 0 (0-100) /uL Sodium 139 (137-145) mmol/L Potassium 4.3 (3.4-5.1) mmol/L Chloride 104 (98-107) mmol/L Carbon Dioxide 28 (22-32) mmol/L BUN 22 H (9-20) mg/dL Creatinine 0.87 (0.66-1.25) mg/dL Estimated GFR > 60 (>60) mL/min BUN/Creatinine Ratio 25.3 H (6-22) Glucose 91 (80-110) mg/dL Calcium 9.7 (8.4-10.2) mg/dL Magnesium 1.8 (1.6-2.3) mg/dL Total Bilirubin 1.4 H (0.2-1.3) mg/dL AST 57 (17-59) IU/L ALT 50 H (<50) IU/L Alkaline Phosphatase 84 (38-126) U/L Total Creatine Kinase 182 H (55-170) U/L Troponin I < 0.012 < 0.012 (0.01-0.034) ng/mL Total Protein 7.6 (6.3-8.2) g/dL Albumin 4.5 (3.5-5.0) g/dL Globulin 3.1 (1.7-4.1) g/dL Albumin/Globulin Ratio 1.5 (1.0-2.8) Lipase 41 (23-300) U/L Urine Dip Bedside Urine Glucose Negative Bedside Urine Bilirubin - Negative Bedside Urine Ketone - Negative Urine Specific [place] 1.010 Bedside Urine Occult Blood - Negative Bedside Urine pH 6.0 Bedside Urine Protein - Negative Bedside Urine Urobilinogen - Negative Bedside Urine Nitrite - Negative Bedside Urine Leukocytes - Negative Esterase Imaging Data Chest x-ray: Radiologist's Impression: [address] [address] XRay Report Signed Patient: Valentín Cordero MR#: [id number] : 1955 Acct:[id number] Age/Sex: 69 / M Date of Service: 09/29/24 Loc: ED Accession Number: [id number] Procedure: XR chest 1V Ordering Provider: Brennen Grace D.O. PROCEDURE: XR CHEST 1V INDICATIONS: chest pain TECHNIQUE: One view of the chest was acquired. COMPARISON: None. FINDINGS: Surgical changes and devices: None. Lungs and pleura: Lungs are clear considering reduced inspiratory volume. No pleural effusions or pneumothorax. Mediastinum: Mediastinal contours appear normal. Heart size is normal. Bones and chest wall: No suspicious bony lesions. Overlying soft tissues appear unremarkable. IMPRESSION: No acute cardiopulmonary abnormality is seen. Mildly reduced inspiratory volume. ECG Data Interpretation: EKG interpreted by ED physician sinuses 71 beats per minute, frequent PVCs noted, normal axis, incomplete right bundle branch block noted, nonspecific ST changes no STEMI MDM Narrative Medical decision making narrative: 78-year-old male history of hypertension frequent PVCs, presenting from home for evaluation of left-sided chest pain. States it started at around 8:00 a.m. after he was lifting/moving some boxes, he states it was nonexertional. Follows with Dr. Bautista of Cardiology. Patient had lab work imaging EKG performed here in the emergency department, EKG just showing frequent PVCs but no ischemic changes. 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 Disease processes change and evolve, if your symptoms worsen or if you develop any new symptoms that are concerning to you please return for evaluation. Your evaluation today does not show any evidence of any life-threatening/serious illnesses requiring admission to the hospital or surgery. Please follow-up with your doctor for re-evaluation in approximately 1 day. Seek immediate medical attention for any worrisome symptoms. *If you do not have a primary care provider please contact the [facility] Resource line at [phone]. They will ask some questions about your medical history and help get you set up with a doctor in the community. Prescriptions: No Action cholecalciferol (vitamin D3) 50 mcg (2,000 unit) capsule 50 mcg PO DAILY tadalafil (pulm. hypertension) 20 mg tablet 10 mg PO DAILY PRN (Reason: sexual activity) Qty: 30 2RF Rx Instructions: administer approximately 30min before sexual activity; do not use more than 1 dose per 24hrs lisinopril 20 mg tablet 20 mg PO DAILY Qty: 90 3RF naproxen sodium [Aleve] 220 mg capsule 220 mg PO BID PRN Referrals: Ramo Pendleton MD [Primary Care Provider] - Stand Alone Forms: Patient Portal/API/Survey
[2024-09-29] MEDS: ASPIRIN 81 MG CHEW TAB 324 MG PO (09:22)
[2024-09-29 09:30] LABS: Add Manual Diff / Slide Review NO; Basophils Absolute Auto 0 /uL (0-100); Basophils Percent Auto 0.6 % (0-2); Eosinophils Absolute Auto 100 /uL (0-450); Eosinophils Percent Auto 1.4 % (2-4); Hematocrit 44.6 % (41-53); Hemoglobin 15.1 g/dL (13.5-17.5); Lymphocytes Absolute Auto 1400 /uL (1100-4500); Lymphocytes Percent Auto 24.1 % (25-40); Mean Corpuscular HGB Conc 33.9 % (30-36); Mean Corpuscular Hemoglobin 31.9 PG (26-34); Mean Corpuscular Volume 94.3 fL (80-100); Monocytes Absolute Auto 500 /uL (0-900); Monocytes Percent Auto 9.1 % (3-14); Neutrophils Absolute Auto 3800 /uL (1500-7000); Neutrophils Percent Auto 64.8 % (50-75); Platelet Count 262 X10^3/uL (150-400); Red Blood Cell Count 4.73 X10^6/uL (4.5-5.9); Red Cell Distribution Width 13.5 % (11.6-14.8); White Blood Cell Count 5.9 X10^3/uL (4.5-11.0)
[2024-09-29 09:42] LABS: Alanine Aminotransferase 50 IU/L (<50); Albumin 4.5 g/dL (3.5-5.0); Albumin Globulin Ratio 1.5 (1.0-2.8); Alkaline Phosphatase 84 U/L (38-126); Aspartate Aminotransferase 57 IU/L (17-59); BUN Creatinine Ratio 25.3 (6-22); Bilirubin Total 1.4 mg/dL (0.2-1.3); Blood Urea Nitrogen 22 mg/dL (9-20); Calcium 9.7 mg/dL (8.4-10.2); Carbon Dioxide 28 mmol/L (22-32); Chloride 104 mmol/L (98-107); Creatine Kinase 182 U/L (55-170); Estimated Glomerular Filt Rate > 60 mL/min (>60); Globulin 3.1 g/dL (1.7-4.1); Glucose 91 mg/dL (80-110); HEMOLYSIS < 15 (0-50); Lipase 41 U/L (23-300); Potassium 4.3 mmol/L (3.4-5.1); Sodium 139 mmol/L (137-145); Total Protein 7.6 g/dL (6.3-8.2)
[2024-09-29 09:47] LABS: Magnesium 1.8 mg/dL (1.6-2.3)
[2024-09-29 09:54] LABS: Troponin I < 0.012 ng/mL (0.01-0.034)
[2024-09-29 11:59] LABS: Troponin I < 0.012 ng/mL (0.01-0.034)
--- NOTE | 2024-09-29 12:45 | PC.NURSE ---
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
== END 2024-09-29 12:46 | disposition home or self-care (01) ==
PROVIDERS: Emergency Provider Student in an Organized Health Care Education/Training Program; PCP Family Medicine
DX: R07.9 Chest pain, unspecified (principal)
CPT/HCPCS: 36415; 71045; 80053; 81003; 82550; 83690; 83735; 84484; 85025; 93005; 93010; 99284

== ENCOUNTER → 2024-10-24 07:27 | Outpatient (CLI) | payer MEDICARE, OTHER, SELFPAY ==
[2021-03-15 13:54] VITALS: BMI 27.3
[2024-10-24 09:10] LABS: Cholesterol 211 mg/dL (140-199); HDL Cholesterol 86 mg/dL (40-60); LDL Cholesterol Calculated 110 mg/dL (<100); Triglycerides 75 mg/dL (35-150)
[2024-10-24 09:13] LABS: Microalbumin Urine Random 2.3 mg/dL (0-1.6)
== END ==
PROVIDERS: PCP Family Medicine; Referring Provider Family Medicine; Visit Provider Family Medicine
DX: I10 Essential (primary) hypertension (principal); E78.5 Hyperlipidemia, unspecified
CPT/HCPCS: 36415; 80061; 82043; 82570

== ENCOUNTER 2025-05-18 14:05 | Emergency (ER) | payer MEDICARE, OTHER, SELFPAY ==
[2021-03-15 13:54] VITALS: BMI 27.3
[2025-05-18 14:10] VITALS: BP 132/87; PULSE 73; RESP 18; TEMP 36.7; O2SAT 99; BMI 27.3
--- NOTE | 2025-05-18 14:29 | EKG_ITS ---
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
[2025-05-18 14:51] LABS: Add Manual Diff / Slide Review NO; Hematocrit 41.7 % (41-53); Hemoglobin 14.5 g/dL (13.5-17.5); Lymphocytes Absolute Auto 1700 /uL (1100-4500); Mean Corpuscular HGB Conc 34.8 % (30-36); Mean Corpuscular Hemoglobin 31.7 PG (26-34); Mean Corpuscular Volume 91.1 fL (80-100); Platelet Count 311 X10^3/uL (150-400)
[2025-05-18 15:17] LABS: Alanine Aminotransferase 20 IU/L (<50); Albumin 4.2 g/dL (3.5-5.0); Albumin Globulin Ratio 1.2 (1.0-2.8); Alkaline Phosphatase 78 U/L (38-126); Blood Urea Nitrogen 11 mg/dL (9-20); Calcium 9.4 mg/dL (8.4-10.2); Carbon Dioxide 26 mmol/L (22-32); Chloride 104 mmol/L (98-107); Estimated Glomerular Filt Rate > 60 mL/min (>60); Globulin 3.4 g/dL (1.7-4.1); Glucose 96 mg/dL (70-99); HEMOLYSIS 15 (0-50); Lipase 47 U/L (23-300); Potassium 4.0 mmol/L (3.4-5.1); Sodium 138 mmol/L (137-145); Total Protein 7.6 g/dL (6.3-8.2)
[2025-05-18 15:33] VITALS: BP 148/89
[2025-05-18 15:34] VITALS: PULSE 65; O2SAT 99
[2025-05-18 16:00] VITALS: BP 140/84; PULSE 62; O2SAT 99
[2025-05-18 16:30] VITALS: BP 144/75; PULSE 75; O2SAT 99
--- NOTE | 2025-05-18 16:32 | DI.CT.S_ITS ---
PROCEDURE: CT ABDOMEN PELVIS W CON INDICATIONS: Abd pain TECHNIQUE: After the administration of intravenous contrast, axial sections acquired from the lung bases to the pubic symphysis. Coronal and sagittal reformats were performed. For radiation dose reduction, the following was used: automated exposure control, adjustment of mA and/or kV according to patient size. COMPARISON: live. r [facility], CT, CT ABDOMEN PELVIS W CON,. 05/31/2021, 15:26[facility] [place], CT, CT ABDOMEN PELVIS W CON, 04/15/2024, 18:36. FINDINGS: Image quality: Diagnostic. Lower Chest: No significant findings. ABDOMEN: Liver: No solid mass. Flash filling of a 1.4 cm segment 4 of the left lobe of the liver. Gallbladder: No radiopaque gallstones or wall thickening. Biliary ducts: No biliary dilation. Pancreas: No ductal dilation. Spleen: Size is within normal limits. Adrenal Glands: No adrenal nodules. Kidneys and Ureters: No hydronephrosis. No solid mass. No complex renal cystic lesion which requires follow up. Stomach and Bowel: Normal colonic caliber, without significant wall thickening. Extensive sigmoid diverticulosis with subtle changes of acute diverticulitis. No free air, free fluid, or abscess cavity is identified. Peritoneum: No abnormal intraperitoneal fluid. No free air. Ventral Wall: No significant ventral hernia. Abdominal Nodes: No retroperitoneal or mesenteric adenopathy by size criteria. Vessels: Aorta and inferior vena cava are normal in size. PELVIS: Pelvic Organs: Prostatomegaly.. Bladder: No bladder wall thickening, accounting for underdistention. Pelvic Nodes: No enlarged lymph nodes. Miscellaneous: No inguinal hernias are seen. Bones: No aggressive osseous abnormality. IMPRESSION: Extensive sigmoid diverticulosis with mild superimposed acute diverticulitis. Comment: If the patient has not had recent colonoscopy, recommend direct visualization after acute symptoms resolve to exclude underlying lesion. Dictated by: Easton Valderrama M.D. on 05/18/2025 at 17:08 Approved by: Easton Valderrama M.D. on 05/18/2025 at 17:13
--- NOTE | 2025-05-18 17:46 | ED.ABDPAIN ---
HPI - Abdominal Pain General Chief Complaint: Abdominal Pain Stated Complaint: Diverticulitis flare up. Sent from [facility] Time Seen by Provider: 05/18/25 16:32 Source: patient Mode of arrival: Ambulatory History of Present Illness HPI narrative: 69-year-old male with past medical history of hypertension, appendectomy 4 years ago, colitis diagnosed approximately 1 year ago, presenting with acute coming and going abdominal pain in the left lower quadrant starting the day before Thanksgiving. denies fevers, chills, nausea, vomiting, diarrhea, chest pain, shortness of breath, dizziness, headache, and urinary symptoms. Related Data Home Medications ?Medication ?Instructions ?Recorded ?Confirmed naproxen sodium 220 mg capsule 220 mg PO BID PRN 07/21/22 05/10/25 (Aleve) cholecalciferol (vitamin D3) 50 50 mcg PO DAILY 09/21/23 05/10/25 mcg (2,000 unit) capsule Previous Rx's ?Medication ?Instructions ?Recorded lisinopril 20 mg tablet 20 mg PO DAILY #90 tabs 04/03/25 amoxicillin 875 mg-potassium 1 tab PO BID #14 tabs 05/10/25 clavulanate 125 mg tablet Allergies Allergy/AdvReac Type Severity Reaction Status Date / Time No Known Drug Allergies Allergy Verified 05/18/25 14:14 Review of Systems Review of Systems ROS Unobtainable: All systems reviewed & are unremarkable except as noted in HPI and below Patient History Medical History (Updated 05/18/25 @ 17:53 by Chris Van MD) Degenerative joint disease of knee Facet arthropathy, lumbar Eczema Diverticular disease Hypertension Surgical History History of appendectomy H/O sinus surgery Status post arthroscopy of right shoulder History of arthroscopy of both knees (2000) History of shoulder surgery (1994) Family History Father Lung disease Smoker Oxygen dependent Mother Smoker Oxygen dependent Social History marital status: number of children: 2 household members: spouse lives independently: Yes occupational status: other (retired) current occupational exposures/hazards: No leisure activities: exercise Smokeless tobacco user: chewing tobacco (quit 30 years ago) second hand exposure: Yes (in childhood) alcohol intake: current (10-14 servings per week) substance use type: does not use during the past year weight has: remained stable well-balanced diet: daily or most days daily servings fruits/ve-4 caffeine: Yes Type(s) of exercise: walking frequency: daily alcohol intake frequency: 0-2 drinks per day Exam Narrative Exam Narrative: Mild left lower quadrant tenderness on palpation Initial Vital Signs Initial Vital Signs: Vital Signs Temperature 98.1 F 05/18/25 14:10 Pulse Rate 73 05/18/25 14:10 Respiratory Rate 18 05/18/25 14:10 Blood Pressure 132/87 05/18/25 14:10 Pulse Oximetry 99 05/18/25 14:10 Oxygen Delivery Method Room Air 05/18/25 14:10 Const General: cooperative, healthy appearing, comfortable, well developed and well hydrated Nutritional Appearance: average body habitus [facility] Head: normal to inspection Ears: external ears normal Nose: external nose normal and nares normal Face and sinus: sinuses nontender, face symmetric, ecchymosis not on the right, not on the left and not bilaterally, erythema not on the right, not on the left and not bilaterally and edema not on the right, not on the left and not bilaterally Mouth: lip normal Eyes General: Yes appearance normal, both eyes and all related structures Eyelids: eyelids normal Sclera: sclerae normal Pupils: PERRL Neck Neck: normal visual inspection Resp Effort & Inspection: normal respiratory effort and able to speak in complete sentences Cardio Rate: regular rate Rhythm: regular rhythm Pulses: radial pulses present GI Inspection: normal to inspection and non-distended General: bimanual renal exam normal bilaterally Back/Spine/Pelvis Back: normal to inspection Skin General: no rashes or lesions noted Neuro General: patient alert, patient awake, patient oriented x3, gait normal, moves all extremities, normal light touch, pain and propioception, no focal motor deficits and CN's II-XI intact bilaterally Cognition: normal cognition Speech: speech normal Gait: normal gait Motor: muscle tone normal throughout Sensory Exam: no sensory deficits noted Extrem General: normal to inspection Psych Appearance: grossly normal Mental Status: mental status grossly normal Speech and Movement: speech and movement normal Mood: congruent mood Attitude: cooperative Thought Process: normal Thought Content: normal Judgment: judgment good Course Orders Ordered: ED Orders 05/18/25 14:14 EKG-12 Lead Stat 05/18/25 14:22 Complete Blood Count AUTO DIFF Stat Comprehensive Metabolic Panel Stat Lipase Stat 05/18/25 16:32 CT abdomen pelvis w con Stat Ondansetron HCl (Ondansetron 4 Mg/2 Ml Inj) 4 mg IV NOW PRN PRN Reason: Nausea And Vomiting Ondansetron HCl (Ondansetron 4 Mg Odt) 4 mg PO NOW PRN PRN Reason: Nausea And Vomiting Vital Signs Vital signs: Vital Signs - 8 hr 05/18/25 14:10 05/18/25 15:33 05/18/25 15:34 Temperature 98.1 F Pulse Rate 73 65 Respiratory Rate 18 Blood Pressure 132/87 148/89 H Pulse Oximetry 99 99 Oxygen Delivery Method Room Air 05/18/25 16:00 05/18/25 16:00 05/18/25 16:30 Temperature Pulse Rate 62 Respiratory Rate Blood Pressure 140/84 144/75 H Pulse Oximetry 99 Oxygen Delivery Method 05/18/25 16:30 Temperature Pulse Rate 75 Respiratory Rate Blood Pressure Pulse Oximetry 99 Oxygen Delivery Method MDM - Abdominal Pain Lab Data 05/18/25 14:22 05/18/25 14:22 Labs: Lab Results 05/18/25 Range/Units 14:22 WBC 7.8 (4.5-11.0) X10^3/uL RBC 4.58 (4.5-5.9) X10^6/uL Hgb 14.5 (13.5-17.5) g/dL Hct 41.7 (41-53) % MCV 91.1 (80-100) fL MCH 31.7 (26-34) PG MCHC 34.8 (30-36) % RDW 12.4 (11.6-14.8) % Plt Count 311 (150-400) X10^3/uL Neut % (Auto) 64.6 (50-75) % Lymph % (Auto) 21.1 L (25-40) % [place] % (Auto) 11.5 (3-14) % Eos % (Auto) 1.8 L (2-4) % Baso % (Auto) 1.0 (0-2) % Neut # (Auto) 5000 (2030-5472) /uL Lymph # (Auto) 1700 (0770-2056) /uL [place] # (Auto) 900 (0-900) /uL Eos # (Auto) 100 (0-450) /uL Baso # (Auto) 100 (0-100) /uL Sodium 138 (137-145) mmol/L Potassium 4.0 (3.4-5.1) mmol/L Chloride 104 (98-107) mmol/L Carbon Dioxide 26 (22-32) mmol/L BUN 11 (9-20) mg/dL Creatinine 0.77 (0.66-1.25) mg/dL Estimated GFR > 60 (>60) mL/min BUN/Creatinine Ratio 14.3 (6-22) Glucose 96 (70-99) mg/dL Calcium 9.4 (8.4-10.2) mg/dL Total Bilirubin 0.5 (0.2-1.3) mg/dL AST 33 (17-59) IU/L ALT 20 (<50) IU/L Alkaline Phosphatase 78 (38-126) U/L Total Protein 7.6 (6.3-8.2) g/dL Albumin 4.2 (3.5-5.0) g/dL Globulin 3.4 (1.7-4.1) g/dL Albumin/Globulin Ratio 1.2 (1.0-2.8) Lipase 47 (23-300) U/L Point of care testing: Urine Dip Bedside Urine Glucose Negative Bedside Urine Bilirubin - Negative Bedside Urine Ketone - Negative Urine Specific [place] 1.015 Bedside Urine Occult Blood - Negative Bedside Urine pH 6.0 Bedside Urine Protein - Negative Bedside Urine Urobilinogen +/- 1mg Bedside Urine Nitrite - Negative Bedside Urine Leukocytes - Negative Esterase MDM Narrative Medical decision making narrative: Pt presents with abd pain. Check labs r/o anemia, r/o electrolyte abnl including hypokalemia, hyperkalemia, hypernatremia, hyponatremia, hyperglycemia, etc. LFTs performed to evaluate for evidence of acute hepatitis, lipase to evaluate for evidence of acute pancreatitis. UA r/o UTI. IV pain meds, IV GI meds/anti emetics, IV fluids if needed, patient refused. CT ab/pelvis to r/o intra abdominal emergency including acute appendicitis/diverticulitis/renal stone/SBO/AAA, etc, etc. Considered US abd r/o biliary colic or biliary dz. However, deferred due to reassuring hx. Re-eval. Patient with an incompetent complicated diverticulitis, normal white count, no fever, stable vitals. Patient desires to go home. This is a reasonable treatment for home diverticulitis. Patient will be given home liquid diet and recommended to follow up with PMD. Discharge Plan Departure Patient Disposition: Home Clinical Impression: Acute abdominal pain, Diverticulitis Instructions: Clear Liquid Diet, DI for Diverticulitis, Full Liquid Diet Activity Restrictions/Additional Instructions: Return for fever > 38?C, vomiting, inability to tolerate fluids, or inability to pass gas. Regrese por fiebre >38 ? C, v?mitos, incapacidad para tolerar l?quidos, deposiciones anormales o incapacidad para evacuar gases. Prescriptions: No Action cholecalciferol (vitamin D3) 50 mcg (2,000 unit) capsule 50 mcg PO DAILY amoxicillin-pot clavulanate 875-125 mg tablet 1 tab PO BID Qty: 14 0RF lisinopril 20 mg tablet 20 mg PO DAILY Qty: 90 3RF naproxen sodium [Aleve] 220 mg capsule 220 mg PO BID PRN Referrals: Ramo Pendleton MD [Primary Care Provider, Family Practice] Stand Alone Forms: Patient Portal/API
[2025-05-18 17:59] VITALS: BP 135/90; PULSE 63; O2SAT 94
== END 2025-05-18 18:05 | disposition home or self-care (01) ==
PROVIDERS: Emergency Provider Emergency Medicine; PCP Family Medicine
DX: K57.32 Diverticulitis of large intestine without perforation or abscess without bleeding (principal); R10.32 Left lower quadrant pain; Z86.79 Personal history of other diseases of the circulatory system
CPT/HCPCS: 36415; 74177; 80053; 81003; 83690; 85025; 93005; 99283; 99284